=== PATIENT | male | born 1970 | race Hispanic/Latino ===

== ENCOUNTER 2019-12-23 15:03 | Inpatient (IN) | payer SELFPAY ==
[~2019-12-23] VITALS: Ht 167.6 cm; Wt 78.5 kg
--- OUTSIDE RECORDS SUMMARY | 2019-12-23 15:06 | XMS REPORT ---
Author Author [facility] Organization [facility] Address Unknown Phone Unavailable Care Team Providers Care [facility] Orderly Name Role Phone Unavailable Unavailable Payers Payer Name Policy Type Policy Number Effective Date Expiration D ate Problems This patient has no known problems. Allergies, Adverse Reactions, Alerts Allergy Name Allergy Type Status Severity Reaction(s) Onset Date Inacti ve Date Treating Clinician Comments No Known Allergies DA Active U 2019-07-27 00:00:00 No Known Drug Intolerances DA Active U 2007-05-31 00 :00:00 No Known Contrast Allergies DA Active U 2007-05-31 0 0:00:00 No Known Drug Allergies DA Active U 2007-05-31 00:00 :00 No Known Food Allergies DA Active U 2007-05-31 00:00 :00 No Known Other Allergies DA Active U 2007-05-31 00:0 0:00 Medications This patient has no known medications. Encounters Start Date/Time End Date/Time Encounter Type Admission Type [facility] Care Department Encounter ID 2019-10-27 17:11:00 2019-10-27 17:11:00 Emergency E MHSE [id number] 2018-12-28 16:24:00 2018-12-28 16:24:00 Emergency E MHSE MHSE [id number] 2018-12-15 23:16:00 2018-12-15 23:16:00 Emergency E MHNW MHNW [id number] Results Test Description Test Time Test Comments Text Results Atomic Results Result Comments CBC W/O DIFF 2019-07-28 00:12:00 WHITE BLOOD CELL (test code = WBC) 10.2 K/mm3 4.5-12.5 RED BLOOD CELL (test code = RBC) 5.23 mill/mm3 4.0-5.8 HEMOGLOBIN (test code = HGB) 15.1 gram/dL 13.0-17.5 HEMATOCRIT (test code = HCT) 47.3 % 42.0-52.0 MEAN CELL VOLUME (test code = MCV) 90.4 fL 80-98 MEAN CELL HGB (test code = MCH) 28.9 picogram 27.0-33.0 MEAN CELL HGB CONCETRATION (test code = MCHC) 31.9 gram/dL 33 .0-36.0 RED CELL DISTRIBUTION WIDTH (test code = RDW) 12.9 % 11 .6-16.2 PLATELET COUNT (test code = PLT) 314 K/mm3 150-450 MEAN PLATELET VOLUME (test code = MPV) 9.7 fL 6.7-11.0 BASIC METABOLIC [id number] 00:08:00* Test Item Value Reference Range Comments SODIUM (test code = NA) 139 mmol/L 136-145 POTASSIUM (test code = K) 3.4 mmol/L 3.5-5.1 CHLORIDE (test code = CL) 101.0 mmol/L 98-107 CARBON DIOXIDE (test code = CO2) 32.0 mmol/L 21-32 ANION GAP (test code = GAP) 9.4 10-20 GLUCOSE (test code = GLU) 174 mg/dL 74-106 BLOOD UREA NITROGEN (test code = BUN) 19 mg/dL 7-18 GLOMERULAR FILTRATION RATE (test code = GFR) > 60 mL/min >=6 0 Estimated GFR by using Modified MDRD formula.Chronic kidney disease is defined as either kidney damageor GFR <60 mL/min/1.73 m2 for >3 months. CREATININE (test code = CREAT) 1.00 mg/dL 0.7-1.3 BUN/CREATININE RATIO (test code = BUN/CREA) 18.1 10-2 0 CALCIUM (test code = CA) 9.6 mg/dL 8.5-10.1 [id number] 00:08:00* Test Item Value Reference Range Comments TROPONIN-I (test code = TROPI) <0.015 ng/mL 0-0.045 BASIC METABOLIC [id number] 23:57:00* Test Item Value Reference Range Comments SODIUM (test code = NA) 139 mmol/L 136-145 POTASSIUM (test code = K) 3.4 mmol/L 3.5-5.1 CHLORIDE (test code = CL) 101.0 mmol/L 98-107 CARBON DIOXIDE (test code = CO2) mmol/L 21-32 ANION GAP (test code = GAP) 10-20 GLUCOSE (test code = GLU) mg/dL 74-106 BLOOD UREA NITROGEN (test code = BUN) mg/dL 7-18 GLOMERULAR FILTRATION RATE (test code = GFR) mL/min >=6 0 CREATININE (test code = CREAT) mg/dL 0.7-1.3 BUN/CREATININE RATIO (test code = BUN/CREA) 10-2 0 CALCIUM (test code = CA) 9.6 mg/dL 8.5-10.1 [id number] 23:57:00* Test Item Value Reference Range Comments TROPONIN-I (test code = TROPI) ng/mL 0-0.045 - XR CHEST 1 [id number] 23:32:00 FAX: Chelsea José DO [place]: B St: REG Name: SRIRAM GIMENEZ [facility] : [birth year] Age/S: 49/M [address] [facility] Unit #: [id number] Loc: [place] [address] Phys: Chelsea José DO Acct: [id number] Dis Date: Status: REG ER PHONE #: [phone] Exam Date: 07/27/2019 2330 FAX #: [phone] Reason: CHEST PAIN EXAMS: CPT CODE: [id number] XR CHEST 1 V 11934 LOCATION: Q15 HISTORY: 49-year-old male who presents with chest pain. COMMENT: A frontal chest radiograph was obtained at the bedside at 11:25 p.m. The lungs are clear and well-aerated. The cardiac silhouette, thaddeus, and mediastinum are within normal limits. The skeleton is intact, and the surrounding soft tissues are unremarkable. IMPRESSION: Unremarkable portable examination of the chest. at 2332 Reported and signed by: Shaila Breen M.D. CC: Chelsea José DO Technologist: Ana Rosa Samuels Trnscrd Date/Time/By: 07/27/2019 (8463) : By: [email or web address] Orig Print D/T: S: 07/27/2019 (0283) PAGE 1 Signed Report
[2019-12-23] MEDS ORDERED: ASPIRIN 81 MG CHEW TAB PO ONE (15:30)
[2019-12-23 15:45] LABS: INR 0.89; PROTHROMBIN TIME 12.6 seconds (11.9-14.5)
[2019-12-23 15:46] LABS: PARTIAL THROMBOPLASTIN TIME 22.3 seconds (23.8-35.5)
--- NOTE | 2019-12-23 15:54 | NUR ---
RECEIVED CALL FROM LAB, BLOOD CLOTTED. HAMZAH AND SENT TO LAB
[2019-12-23 15:56] LABS: ALANINE AMINOTRANSFERASE 22 IU/L (0-55); ALBUMIN 3.9 g/dL (3.5-5.0); ALKALINE PHOSPHATASE 66 IU/L (40-150); ANION GAP 12.8 mmol/L (8-16); BLOOD UREA NITROGEN 15 mg/dL (7-26); BUN/CREATININE RATIO 14 (6-25); CALCIUM 10.2 mg/dL (8.4-10.2); CARBON DIOXIDE 30 mmol/L (22-29); CHLORIDE 100 mmol/L (98-107); CREATINE KINASE 46 IU/L (30-200); CREATININE, SERUM 1.07 mg/dL (0.72-1.25); EST GLOMERULAR FILTRATION RATE > 60 ML/MIN (60-); GLUCOSE 94 mg/dL (74-118); POTASSIUM 4.8 mmol/L (3.5-5.1); SODIUM 138 mmol/L (136-145)
--- NOTE | 2019-12-23 16:01 | NUR ---
COVID TEST, OBTAINED
[2019-12-23 16:03] LABS: BASOPHILS # (AUTO) 0.1 (0.0-0.1); BASOPHILS % 0.4 % (0.0-1.0); EOSINOPHILS # (AUTO) 0.1 (0.0-0.4); EOSINOPHILS % 0.9 % (0.0-6.0); HEMATOCRIT 47.2 % (38.2-49.6); HEMOGLOBIN 15.2 g/dL (14.0-18.0); LYMPHOCYTES % 25.8 % (18.0-39.1); MEAN CORPUSCULAR HEMOGLOBIN 28.4 pg (28-32); MEAN CORPUSCULAR HGB CONC 32.2 g/dL (31-35); MEAN CORPUSCULAR VOLUME 88.2 fL (81-99); MONOCYTES # (AUTO) 0.9 (0.2-0.8); MONOCYTES % 7.9 % (4.4-11.3); NEUTROPHILS # (AUTO) 7.6 (2.1-6.9); NEUTROPHILS % 64.6 % (38.7-80.0); PLATELET COUNT 247 x10e3/uL (140-360); RED BLOOD COUNT 5.35 x10e6/uL (4.3-5.7); RED CELL DISTRIBUTION WIDTH 13.5 % (11.7-14.4)
[2019-12-23] MEDS ORDERED: ONDANSETRON HCL INJ 2MG/ML 2ML 2 MG/ML VIAL IV PRN (16:15)
[2019-12-23] MEDS ORDERED: MORPHINE SULFATE 2 MG/ML SYR 1ML IV PRN ×2 (16:15→20:45)
[2019-12-23] MEDS ORDERED: NITROGLYCERIN 0.4 MG SUBL SL PRN (16:15)
--- NOTE | 2019-12-23 16:18 | Diagnostic Imaging Report ---
EXAMINATION: CHEST SINGLE (PORTABLE) INDICATION: ^cp ^[id number] ^[id number] COMPARISON: None FINDINGS: AP view Limited by body habitus. TUBES and LINES: None. LUNGS: Lungs are well inflated. There is no evidence of pneumonia or pulmonary edema. PLEURA: No pleural effusion or pneumothorax. HEART AND MEDIASTINUM: The cardiomediastinal silhouette is unremarkable. BONES AND SOFT TISSUES: No acute osseous lesion. Soft tissues are unremarkable. UPPER ABDOMEN: No free air under the diaphragm. IMPRESSION: No acute thoracic abnormality. Signed by: Dr. Wiley Caputo MD on 12/23/2019 4:14 PM
[2019-12-23] MEDS ORDERED: METOPROLOL TAR100 MG PO (16:19)
[2019-12-23] MEDS ORDERED: OMEGA-31000 MG PO (16:19)
[2019-12-23] MEDS ORDERED: [UNRECOGNIZED DRUG - OTHER] PO (16:19)
[2019-12-23] MEDS ORDERED: atorvastin PO (16:19)
[2019-12-23] MEDS ORDERED: [UNRECOGNIZED DRUG - OTHER] PO (16:19)
[2019-12-23] MEDS ORDERED: [UNRECOGNIZED DRUG - OTHER] PO (16:19)
[2019-12-23] MEDS ORDERED: ALOPURINOL PO (16:19)
--- NOTE | 2019-12-23 16:19 | NUR ---
PATIENT HAS MEDICATION HE BROUGHT FROM [place]
[2019-12-23 17:38] VITALS: BP 132/83
[2019-12-23 17:55] VITALS: BP 132/83
[2019-12-23 18:29] VITALS: BP 132/83
[2019-12-23 19:37] VITALS: BP 133/56
[2019-12-23 19:47] VITALS: BP 133/84
[2019-12-23] MEDS ORDERED: ACETAMINOPHEN 325 MG TAB PO PRN (20:45)
[2019-12-23] MEDS ORDERED: HYDROCODONE/APAP 5MG-325MG TAB PO PRN (20:45)
[2019-12-23] MEDS: FAMOTIDINE 20 MG/2 ML VIAL IV SCH (21:11)
[2019-12-23] MEDS ORDERED: AMLODIPINE BESY10 MG PO (21:17)
[2019-12-23] MEDS: CLOPIDOGREL BISULFATE 75 MG TAB PO SCH (23:00)
[2019-12-23] MEDS: ATORVASTATIN 40 MG TAB PO SCH (23:00)
[2019-12-23 23:44] LABS: BASOPHILS % 0.3 % (0.0-1.0); EOSINOPHILS # (AUTO) 0.1 (0.0-0.4); HEMATOCRIT 44.9 % (38.2-49.6); HEMOGLOBIN 14.5 g/dL (14.0-18.0); LYMPHOCYTES # (AUTO) 3.6 (1.0-3.2); LYMPHOCYTES % 31.6 % (18.0-39.1); MEAN CORPUSCULAR HEMOGLOBIN 28.3 pg (28-32); MEAN CORPUSCULAR HGB CONC 32.3 g/dL (31-35); MEAN CORPUSCULAR VOLUME 87.5 fL (81-99); MONOCYTES # (AUTO) 0.7 (0.2-0.8); MONOCYTES % 6.3 % (4.4-11.3); NEUTROPHILS # (AUTO) 6.9 (2.1-6.9); NEUTROPHILS % 60.3 % (38.7-80.0); PLATELET COUNT 237 x10e3/uL (140-360); RED BLOOD COUNT 5.13 x10e6/uL (4.3-5.7); RED CELL DISTRIBUTION WIDTH 13.5 % (11.7-14.4)
[2019-12-24] VITALS (8 sets, daily range): BP systolic 104–143; BP diastolic 67–87
[2019-12-24 00:04] LABS: ANION GAP 10.4 mmol/L (8-16); BLOOD UREA NITROGEN 15 mg/dL (7-26); BUN/CREATININE RATIO 17 (6-25); CALCIUM 9.5 mg/dL (8.4-10.2); CARBON DIOXIDE 28 mmol/L (22-29); CHLORIDE 104 mmol/L (98-107); CREATININE, SERUM 0.89 mg/dL (0.72-1.25); EST GLOMERULAR FILTRATION RATE > 60 ML/MIN (60-); GLUCOSE 189 mg/dL (74-118); POTASSIUM 3.4 mmol/L (3.5-5.1); SODIUM 139 mmol/L (136-145)
--- NOTE | 2019-12-24 00:28 | History and Physical ---
CHIEF COMPLAINT: Chest pain. HISTORY OF PRESENT ILLNESS: A 49-year-old male with known history of hypertension and hyperlipidemia, comes into the ED with complaints of chest pain that began on Wednesday of this week. The patient reports it is left-sided substernal that has been pinpoint ongoing episodically for the last several days. He denies any radiation to the left shoulder and arm. Denies any associated nausea and vomiting. He does have occasional headaches, but currently does not have any headaches. Denies any abdominal pain, cough, congestion, fever, or any recent travel. He did see a PCP apparently in [place] and was told that he needed a cardiac workup, but was not able to afford it. He was prescribed some Plavix in [place], but he did not describe having a heart catheterization as he reports he did not have money to perform that procedure. He was then prescribed cardioprotective medications including Plavix when he left [place]. The patient is seen and evaluated at bedside on the medical floor, he is currently doing well with no other issues at this time. He was chest pain-free during my evaluation and his vital signs were stable during my evaluation. REVIEW OF SYSTEMS: Pertinent positive chest pain. The rest of 14-point review of systems have been reviewed with the patient and are negative. ALLERGIES: NO KNOWN DRUG ALLERGIES. HOME MEDICATIONS: He currently takes allopurinol, atorvastatin, Plavix, metoprolol, and fish oil. There are two other drugs that are specific for [place], but we do not know the translation here in the [place]. PAST MEDICAL HISTORY: Hypertension and hyperlipidemia. PAST SURGICAL HISTORY: None. FAMILY HISTORY: Hypertension and diabetes. SOCIAL HISTORY: He denies smoking, drugs, or any alcohol. He is . PHYSICAL EXAMINATION: VITAL SIGNS: Temperature is 97.9, pulse is 50, respiratory rate is 18, blood pressure 133/56, and pulse ox 99% on room air. GENERAL: In no acute distress, alert and oriented x3, cooperative on examination. HEENT: Head is normocephalic and atraumatic. Eyes; pupils are equal, round and reactive to light bilaterally. Extraocular movements are equal. Throat; no evidence of erythema or exudates in the posterior pharynx. Has poor dentition. NECK: Supple. Good range of motion throughout. PULMONARY: Clear to auscultation bilaterally. No wheezing, rales, or rhonchi. No crackles appreciated. CARDIOVASCULAR: Positive S1, S2. No murmurs, rubs, or gallops appreciated. ABDOMEN: Soft, nondistended, and nontender to palpation. Bowel sounds present. MUSCULOSKELETAL: No evidence of any muscle deficits on examination. NEUROLOGICAL: Alert and oriented x3. Skin: Intact, warm to touch. Good cap refill. PSYCHIATRIC: Normal affect and mood. EXTREMITIES: No edema. Good range of motion throughout. LABORATORY DATA: Labs show white count 11.6, hemoglobin 15, hematocrit 47, platelets of 247,000. Coagulation PT 12, INR 0.89, and PTT 22. Chemistry; sodium 138, potassium 4.8, chloride 100, bicarb 30, anion gap of 12, BUN is 15, creatinine is 1.07, glucose 94, calcium 10.2, magnesium 2, total bilirubin is 0.8, AST 33, ALT 22, alkaline phosphatase 66, CK 46, troponins 0.016 negative, BNP 34, albumin 3.9. Serology, crawley virus PCR is pending. IMAGING STUDIES: Chest x-ray shows no acute thoracic abnormality. IMPRESSION: 1. Chest pain, rule out acute coronary syndrome. 2. Hypertension. 3. Hyperlipidemia. PLAN: At this time, his cardiac enzymes were found to be negative. EKG showed no acute findings, normal sinus rhythm. We will continue with aspirin, also Plavix that he takes at home. Continue with cardioprotective medications, pain control. Trend cardiac enzymes, Cardiology consultation and cardiac telemetry. We are going to resume same home medications, but hold the beta-blockade as his heart rate is in the 50s, which could be contributing to his underlying possible chest pain. We will continue with Pepcid. It seems like from his story that his chest pain is likely atypical and it could be related to acid reflux the way he was describing it during my interview with him. He is on Pepcid for that. We will put him on also Lovenox for DVT prophylaxis, heart healthy diet. Cardiology consult and await final recommendations. I reviewed the plan of care with the patient and the nurse at bedside. MD MACO Rosas/RUDI /[id number]
[2019-12-24 01:18] LABS: CREATINE KINASE MB 0.7 ng/mL (0-5.0)
--- NOTE | 2019-12-24 06:46 | NUR ---
PATIENT IS RESTING COMFORTABLY IN THE BED. NO DISTRESS NOTED.
[2019-12-24] MEDS: FAMOTIDINE 20 MG/2 ML VIAL IV SCH ×2 (08:17→21:00)
[2019-12-24] MEDS: ASPIRIN 81 MG ENTERIC COATED PO SCH (08:17)
[2019-12-24] MEDS: METOPROLOL TARTRATE 50 MG TAB PO SCH ×2 (08:18→21:00)
[2019-12-24 08:34] LABS: BASOPHILS # (AUTO) 0.1 (0.0-0.1); BASOPHILS % 0.8 % (0.0-1.0); EOSINOPHILS # (AUTO) 0.1 (0.0-0.4); EOSINOPHILS % 0.8 % (0.0-6.0); HEMATOCRIT 47.3 % (38.2-49.6); LYMPHOCYTES # (AUTO) 2.6 (1.0-3.2); MEAN CORPUSCULAR HEMOGLOBIN 27.8 pg (28-32); MEAN CORPUSCULAR HGB CONC 31.7 g/dL (31-35); MEAN CORPUSCULAR VOLUME 87.8 fL (81-99); MONOCYTES # (AUTO) 0.6 (0.2-0.8); MONOCYTES % 6.1 % (4.4-11.3); NEUTROPHILS # (AUTO) 6.5 (2.1-6.9); NEUTROPHILS % 65.9 % (38.7-80.0); PLATELET COUNT 240 x10e3/uL (140-360); RED BLOOD COUNT 5.39 x10e6/uL (4.3-5.7); RED CELL DISTRIBUTION WIDTH 13.6 % (11.7-14.4)
[2019-12-24 08:52] LABS: CREATINE KINASE 33 IU/L (30-200)
[2019-12-24 09:15] LABS: ANION GAP 12.6 mmol/L (8-16); BLOOD UREA NITROGEN 16 mg/dL (7-26); BUN/CREATININE RATIO 15 (6-25); CALCIUM 9.6 mg/dL (8.4-10.2); CARBON DIOXIDE 26 mmol/L (22-29); CHLORIDE 102 mmol/L (98-107); CHOL/HDL RATIO 2.3 (3.9-4.7); CHOLESTEROL 101 MD/DL (0-199); CREATININE, SERUM 1.04 mg/dL (0.72-1.25); EST GLOMERULAR FILTRATION RATE > 60 ML/MIN (60-); GLUCOSE 178 mg/dL (74-118); HDL CHOLESTEROL 43 MG/DL (40-60); LDL CHOLESTEROL 45 MG/DL (60-130); POTASSIUM 3.6 mmol/L (3.5-5.1); SODIUM 137 mmol/L (136-145); TRIGLYCERIDES 65 MG/DL (0-149)
--- NOTE | 2019-12-24 16:21 | Progress Note ---
DATE: 12/24/2019 SUBJECTIVE: The patient reports still having some occasional chest pain. He was doing well during my interview when I examined him today. Denies any other issues at this time. PHYSICAL EXAMINATION: VITAL SIGNS: Temperature is 98.4, pulse 54, respiratory rate is 20, blood pressure 130/83, pulse ox 96% on room air. GENERAL: In no acute distress, alert and oriented x3, cooperative on examination. HEENT: Head is normocephalic and atraumatic. Eyes; pupils are equal, round and reactive to light bilaterally. Extraocular movements are equal. Throat; no evidence of erythema or exudates in the posterior pharynx. Has poor dentition. NECK: Supple. Good range of motion throughout. PULMONARY: Clear to auscultation bilaterally. No wheezing, rales, or rhonchi. No crackles appreciated. CARDIOVASCULAR: Positive S1, S2. No murmurs, rubs, or gallops appreciated. ABDOMEN: Soft, nondistended, and nontender to palpation. Bowel sounds present. MUSCULOSKELETAL: Strength is 5/5 throughout. NEUROLOGIC: Alert and oriented x3. SKIN: Intact, warm to touch. Good cap refill. PSYCHIATRIC: Normal affect and mood. EXTREMITIES: No edema. Good range of motion throughout. MICROBIOLOGY: Throat cultures are pending. IMAGING STUDIES: Lab findings show white count 9.9, hemoglobin 15, hematocrit 47, platelets 240. Chemistry reviewed, stable. Troponins were negative. IMPRESSION: 1. Chest pain, rule out acute coronary syndrome. 2. Hypertension. 3. Hyperlipidemia. PLAN: At this time, cardiac enzymes were found to be negative. I spoke with Cardiology. They are going to perform a cardiac stress test likely tomorrow. Continue with aspirin and Plavix that he already takes at home. Hold all beta-blockade. His heart rate is low. Continue with Lovenox for DVT prophylaxis. Continue with Norvasc for his blood pressure. He is on a heart-healthy diet. COUNSELING DEPARTMENT CHAIR: Cardiology. MD MACO Rosas/RUDI /[id number]
[2019-12-24] MEDS: ENOXAPARIN 30 MG/0.3 ML SYR SC SCH (17:26)
--- NOTE | 2019-12-24 19:05 | NUR ---
Completed bedside rounds with morning nurse. Pt alert and oriented to name, lying in bed HOB 45 degrees. Pt denies pain at this time. Kun light within reach.
--- NOTE | 2019-12-24 19:22 | Consultation ---
DATE OF CONSULTATION: Cardiology Consultation HISTORY OF PRESENT ILLNESS: This is a 49-year-old male with a history of hypertension and possible coronary artery disease, who presented to the emergency department with progressively worsening chest discomfort and elevated blood pressures. He reports that the pain is essentially left-sided without radiation, mild to moderate intensity, associated with some shortness of breath and occasional headaches. Denies any palpitations, syncope, or orthopnea. Evidently, in August, the patient had visited [place], presented to an Internal Medicine doctor who said his echocardiogram was abnormal and reportedly went to a combination welder apprentice and had a stress test, which revealed an abnormality. The patient not proceed with catheterization as recommended because he cannot afford this. He has stuttering chest pain off and on since that time. Currently, he is feeling better. Denies any ongoing symptoms. REVIEW OF SYSTEMS: A 12-point review of system was conducted and is negative except as above in the HPI. PAST MEDICAL HISTORY: As stated above. PAST SURGICAL HISTORY: None recent. PAST FAMILY HISTORY: Noncontributory to current illness. ALLERGIES: NO KNOWN DRUG ALLERGIES. SOCIAL HISTORY: No illicit drug, alcohol, or tobacco use. MEDICATIONS: See medication reconciliation form. PHYSICAL EXAMINATION: VITAL SIGNS: Temperature is 98.4, heart rate is 54, respirations are 20, blood pressure is 130/83, and oxygen saturation 96% on room air. GENERAL: Well appearing, in no apparent distress. Alert and oriented x3. HEAD: Normocephalic and atraumatic. Eyes, the extraocular muscles are intact. Conjunctiva clear. NECK: No JVD. No bruits. CARDIOVASCULAR: Regular rate and rhythm. LUNGS: Clear to auscultation. ABDOMEN: Soft, nontender, nondistended. EXTREMITIES: No clubbing, cyanosis, or edema. VASCULAR: 2+ pulses. SKIN: Warm and dry intact. LABORATORY DATA: Reviewed. Cardiac enzymes negative x3. A 12-lead electrocardiogram showed sinus bradycardia. IMPRESSION: 1. Precordial pain. 2. Abnormal result of a cardiac function study. 3. Hypertension. 4. Bradycardia. 5. Hyperlipidemia. 6. Obesity. RECOMMENDATIONS: The patient has ruled out for acute myocardial infarction. With the story stated above, we will need to proceed with Lexiscan stress test with nuclear perfusion imaging. We will also obtain a 2D echocardiogram. Reduce beta-blockers as he is bradycardic. Continue all the current cardiovascular medications. DO BRENDA Miller/RUDI /[id number]
[2019-12-24] MEDS: AMLODIPINE BESYLATE 10 MG TAB PO SCH (21:00)
[2019-12-24] MEDS: ATORVASTATIN 40 MG TAB PO SCH (21:00)
[2019-12-24] MEDS: CLOPIDOGREL BISULFATE 75 MG TAB PO SCH (21:00)
[2019-12-25] VITALS (8 sets, daily range): BP systolic 109–150; BP diastolic 69–86
[2019-12-25 05:31] LABS: BASOPHILS # (AUTO) 0.1 (0.0-0.1); BASOPHILS % 0.6 % (0.0-1.0); EOSINOPHILS # (AUTO) 0.2 (0.0-0.4); HEMATOCRIT 47.8 % (38.2-49.6); HEMOGLOBIN 15.5 g/dL (14.0-18.0); LYMPHOCYTES # (AUTO) 3.8 (1.0-3.2); MEAN CORPUSCULAR HEMOGLOBIN 28.7 pg (28-32); MEAN CORPUSCULAR HGB CONC 32.4 g/dL (31-35); MEAN CORPUSCULAR VOLUME 88.5 fL (81-99); MONOCYTES # (AUTO) 0.8 (0.2-0.8); MONOCYTES % 7.7 % (4.4-11.3); NEUTROPHILS # (AUTO) 5.9 (2.1-6.9); NEUTROPHILS % 54.3 % (38.7-80.0); PLATELET COUNT 258 x10e3/uL (140-360); RED CELL DISTRIBUTION WIDTH 13.4 % (11.7-14.4)
[2019-12-25 05:53] LABS: ANION GAP 11.3 mmol/L (8-16); BLOOD UREA NITROGEN 16 mg/dL (7-26); BUN/CREATININE RATIO 19 (6-25); CALCIUM 9.7 mg/dL (8.4-10.2); CARBON DIOXIDE 28 mmol/L (22-29); CHLORIDE 104 mmol/L (98-107); CREATININE, SERUM 0.84 mg/dL (0.72-1.25); EST GLOMERULAR FILTRATION RATE > 60 ML/MIN (60-); GLUCOSE 81 mg/dL (74-118); POTASSIUM 3.3 mmol/L (3.5-5.1); SODIUM 140 mmol/L (136-145)
--- NOTE | 2019-12-25 07:05 | NUR ---
Report given to morning nurse. Patient is in stable condition, no s/s of distress noted. Tele in place. 2g IV right AC intact. Bed alarm on. Bed low and locked. Call light within reach. Pt DIETEROElpidio scheduled today.
--- NOTE | 2019-12-25 07:35 | NUR ---
PATIENT IN BED RESTING WITH NO S/S OF DISCOMFORT. BED IN LOWER POSITION, CALL LIGHT AT REACH.
--- NOTE | 2019-12-25 10:53 | NUR ---
Pt unavailable at this time. Hospital staff at bedside. Will follow up as able. SARAH JOSEPH Procurement Technician Spiritual Care Department O: [phone]
--- NOTE | 2019-12-25 11:16 | NUR ---
PATIENT OFF UNIT FOR A PROCEDURE.
[2019-12-25] MEDS ORDERED: REGADENOSON 0.4 MG/5 ML SYR IV ONE (11:49)
--- NOTE | 2019-12-25 14:17 | NUR ---
SPOKE WITH MD REGARDING ABNORMAL LAB RESULT, NEW ORDER RECEIVED. PATIENT BACK TO UNIT AT THIA TIME. HAD A STRESS TEST DONE.
[2019-12-25] MEDS: FAMOTIDINE 20 MG/2 ML VIAL IV SCH (14:35)
[2019-12-25] MEDS: ASPIRIN 81 MG ENTERIC COATED PO SCH (14:35)
[2019-12-25] MEDS: METOPROLOL TARTRATE 50 MG TAB PO SCH ×2 (14:35→21:00)
[2019-12-25] MEDS ORDERED: POTASSIUM CHLORIDE 20 MEQ TAB CR PO ONE (14:45)
--- NOTE | 2019-12-25 16:15 | NUR ---
CALL PLACED TO ELEVATOR EXAMINER AND ADJUSTER AFTER STRESS TEST. MESSAGE LEFT TO ANSWERING STAFF. AWAITING CALL BACK.
--- NOTE | 2019-12-25 16:47 | NUR ---
Nutrition Screen Note RD Recommendation for Physician: -Recommend advancing diet to cardiac diet when medically appropriate Plan of Care: RD following, monitoring for tolerance and adequacy Nutrition reason for involvement: Nutrition Risk Trigger MST 2 Primary Diagnose(s): chest pain PMH: HTN, HLD Ht: 66 in Wt:174 lb BMI: 28.1 kg/m2 IBW:[address] Assessment: (12/25/19) Chart reviewed. Labs and meds reviewed. Pt is a 49 year old male admitted with chest pain. Pt is currently NPO and was off the unit for a procedure at time of visit. It is documented that pt consumed 75% of meals yesterday. There are no prior weights in chart. Will continue to monitor unless consulted sooner. Current Diet: NPO Malnutrition Evaluation (12/25/19) Unable to fully assess. Will re-evaluate at follow-up as appropriate. Diet Education Needs Assessment: RD is available for diet education as needed Nutrition Care Level: low Signed: Chelsea Andersen, SHIRLEY, LD
[2019-12-25] MEDS: ENOXAPARIN 30 MG/0.3 ML SYR SC SCH (17:17)
--- NOTE | 2019-12-25 19:20 | NUR ---
Patient visited in room during nursing rounds. Patient alert and oriented x3. Patient ambulatory in room prn. Pt awaiting on further orders or recommendations from heart doctors. No c/o pain at this time. Call cooley within reach. Will monitor pt closely.
[2019-12-25] MEDS ORDERED: ONDANSETRON HCL 4 MG ORAL DISINTEGRATING TAB PO PRN (20:00)
--- NOTE | 2019-12-25 20:18 | NUR ---
Nurse (Francis) spoke with Dr. Marlene Mcconnell (via phone) and was informed to obtain consent for patient scheduled for Cardiac catheterization tomorrow.
--- NOTE | 2019-12-25 20:21 | Progress Note ---
DATE: 12/25/2019 Cardiology Progress Note. SUBJECTIVE: The patient continues to complain of chest pain. He denies any shortness of breath. He was seen for nuclear stress test. OBJECTIVE: VITAL SIGNS: Temp 98 degrees, pulse 86, respiratory rate 18, blood pressure 109/73, and oxygen saturation 98% on room air. GENERAL: Awake, alert, in no acute distress. LUNGS: Clear to auscultation bilaterally. No wheezes or crackles. CARDIOVASCULAR: Normal rate, regular rhythm. No murmur, normal S1, S2. ABDOMEN: Soft, nontender. EXTREMITIES: No edema. CARDIAC MEDICATIONS: 1. Metoprolol tartrate 100 mg p.o. q.12 hours. 2. Aspirin 81 mg p.o. daily. 3. Plavix 75 mg p.o. daily. 4. Atorvastatin 40 mg p.o. at bedtime. 5. Amlodipine 5 mg p.o. daily. LABORATORY DATA: WBC 10.86, hemoglobin 15.5, hematocrit 47.8, platelets 258. Sodium 140, potassium 3.3, chloride 104, CO2 of 28, BUN 16, and creatinine 0.84. Telemetry was personally reviewed and interpreted, really normal sinus rhythm. IMPRESSION: 1. Chest pain. 2. Abnormal cardiac stress test. 3. Hypertension. 4. Hyperlipidemia. 5. Hypertension. RECOMMENDATIONS: The patient ruled out for myocardial infarction. Continue current cardiac medications. The patient's nuclear stress test revealed a small mild perfusion defect in the inferior wall. However, the patient had significant horizontal ST-segment depression in the inferolateral leads on stress and given patient's history and stress test findings, recommend proceeding with cardiac catheterization. Thank you for this consult. We will continue to follow. Marlene Mcconnell MD ABS/MODL /[id number]
--- NOTE | 2019-12-25 21:21 | Myoview Stress Test ---
DATE OF STUDY: 12/24/2019 16:09:00 Stress Test - Treadmill ONLY PROCEDURE TITLE: Rest stress single isotope SPECT imaging with pharmacologic stress and gated SPECT imaging. INDICATION: Chest pain. PROCEDURE IN DETAIL: Pharmacologic stress testing was performed with regadenoson per protocol. The heart rate was 72 beats per minute at rest, increased to 113 beats per minute during the regadenoson infusion. The resting blood pressure was 135/89 mmHg and increased to 152/72 mmHg, which is a normal response. The resting electrocardiogram demonstrated normal sinus rhythm with ST and T-wave abnormalities. A 2.[address]-segment depression was observed in lead II, III, AVF, V5 and V6. Myocardial perfusion imaging was performed at rest following the injection of 11 mCi of tetrofosmin. At peak pharmacologic effect, the patient was injected with 29.8 millicuries of tetrofosmin. Gated post-stress tomographic imaging was performed. FINDINGS: The overall quality of study is fair. Left ventricular cavity is noted to be normal size on the rest stress studies. SPECT images demonstrate a small mild perfusion defect at stress that is not present at rest. Gated SPECT imaging reveals normal myocardial thickening and wall motion. The left ventricular ejection fraction was calculated to be 60%. IMPRESSION: Myocardial perfusion imaging is abnormal. There is a small mild perfusion defect in the inferior wall, cannot rule out artifact. Overall, left ventricular systolic function was normal without regional wall motion abnormalities. Marlene Mcconnell MD ABS/MODL /[id number]
[2019-12-25] MEDS: ATORVASTATIN 40 MG TAB PO SCH (21:30)
[2019-12-25] MEDS: AMLODIPINE BESYLATE 10 MG TAB PO SCH (21:30)
[2019-12-25] MEDS: FAMOTIDINE 20 MG TAB PO SCH (21:30)
[2019-12-25] MEDS: CLOPIDOGREL BISULFATE 75 MG TAB PO SCH (21:30)
--- NOTE | 2019-12-25 22:50 | NUR ---
Pt aware and signed consent for cardiac catheterization scheduled tomorrow.
[2019-12-26 00:56] VITALS: BP 108/67
[2019-12-26 05:29] VITALS: BP 131/87
--- NOTE | 2019-12-26 07:17 | NUR ---
PATIENT IN BED RESTING WITH NO DISTRESS. REMAINS NPO FOR A PROCEDURE. BED IN LOWER POSITION, CALL LIGHT AT REACH.
[2019-12-26 08:00] VITALS: BP 132/69
[2019-12-26] MEDS: ASPIRIN 81 MG ENTERIC COATED PO SCH (09:00)
[2019-12-26] MEDS: FAMOTIDINE 20 MG TAB PO SCH (09:00)
--- NOTE | 2019-12-26 09:18 | Progress Note ---
DATE: 12/25/2019 SUBJECTIVE: The patient was in the process of getting a cardiac stress test during the time I came to evaluate him. Per nursing staff, the patient was doing well with no complaints. OBJECTIVE: VITAL SIGNS: He was afebrile, normotensive, respiratory rate is good. GENERAL: Once again, he was in cardiac stress testing during the time of my evaluation. LABORATORY DATA: Reviewed and stable. IMPRESSION: Chest pain rule out acute coronary syndrome. PLAN: At this time, await cardiac stress testing results to determine the next plan of care. If his cardiac stress testing is positive, he will likely need a left heart catheterization. Continue with cardioprotective medications. Discussed plan of care with Cardiology. I also spoke with nursing in terms of plan of care and the patient is currently stable with no issues. We will continue to monitor. MD MACO Rosas/MODRamon /[id number]
[2019-12-26] MEDS ORDERED: LIDOCAINE HCL 2% LOCAL 20 ML VIAL ONE (09:25)
[2019-12-26] MEDS ORDERED: MIDAZOLAM HCL 2 MG/2 ML VIAL ONE (09:25)
[2019-12-26] MEDS ORDERED: HEPARIN SOD (PORCINE) 1000 UNIT/ML 30ML ONE (09:25)
[2019-12-26] MEDS ORDERED: FENTANYL CITRATE/PF 100MCG/2 ML INJ ONE (09:25)
[2019-12-26] MEDS ORDERED: HEPARIN SOD/SOD CHLORIDE 2,000 ML ONE (09:26)
[2019-12-26] MEDS ORDERED: SODIUM CHLORIDE 0.9% 1000ML 1,000 ML ONE (09:26)
[2019-12-26] MEDS ORDERED: NITROGLYCERIN/D5W 200 MCG/ML 0 ML ONE (09:26)
[2019-12-26] MEDS ORDERED: IOPAMIDOL 370 MG/ML 200 ML INFUS..BTL INJ ONE (09:26)
--- NOTE | 2019-12-26 09:38 | NUR ---
GAVE PACKET OF INFORMATION WITH COMMUNITY [employer] FOR ASSISTANCE WITH LOW TO NO INCOME TO PATIENT. RESOURCES THAT PATIENT MAY BE ABLE TO FOLLOW UP UPON DISCHARGE. PT EDUCATED ON EACH RESOURCE AND UNDERSTANDING HOW TO FOLLOW UP TO SEE IF QUALIFIED FOR EACH RESOURCE.
--- NOTE | 2019-12-26 09:52 | NUR ---
PATIENT OF UNIT TO FORK TRUCK DRIVER.
--- NOTE | 2019-12-26 10:37 | NUR ---
PATIENT BACK TO UNIT FROM QUESTIONED DOCUMENTS EXAMINER. HAD A LEFT HEART CATH. DRESSING DRY AND INTACT TO RIGHT GROIN, NO HEMATOMA NOTED. ON BED REST FOR 2 HOURS, URINAL PROVIDED. V/S 98.4-18-74-122/75 AND 99% ON RA. BED IN LOWER POSITION, CALL LIGHT AT REACH.
[2019-12-26] MEDS: METOPROLOL TARTRATE 50 MG TAB PO SCH (10:59)
[2019-12-26 11:55] VITALS: BP 122/75
--- NOTE | 2019-12-26 15:10 | Progress Note ---
DATE: 12/26/2019 Cardiology Progress Note SUBJECTIVE: The patient denies chest pain or shortness of breath. Cardiac catheterization was performed today without evidence of coronary artery disease. OBJECTIVE: VITAL SIGNS: Temperature 98.4 degrees, pulse 74, respiratory rate 18, blood pressure 122/75 oxygen saturation 99%. GENERAL: Awake, alert, in no acute distress. LUNGS: Clear to auscultation bilaterally. No wheezes or crackles. CARDIOVASCULAR: Normal rate, regular rhythm. No murmur. Normal S1, S2. ABDOMEN: Soft, nontender. EXTREMITIES: No edema. CARDIAC MEDICATIONS: Metoprolol tartrate 100 mg p.o. q.12 hours, Plavix 75 mg p.o. at bedtime, atorvastatin 40 mg p.o. at bedtime, amlodipine 5 mg p.o. at bedtime, aspirin 81 mg p.o. daily. LABORATORY DATA: None today. TELEMETRY: Personally reviewed and interpreted revealing normal sinus rhythm. IMPRESSION: 1. Chest pain. 2. Abnormal cardiac stress test. 3. Hypertension. 4. Hyperlipidemia. RECOMMENDATIONS: The patient ruled out for myocardial infarction. Cardiac catheterization was performed without evidence of coronary artery disease. Recommend risk factor modification and blood pressure control. Discussed heart healthy low-sodium diet. Once the patient's bed rest is complete and he is able to ambulate in the hallway without difficulty he may be discharged from a cardiac standpoint. Thank you for this consult. We will continue to follow. Marlene Mcconnell MD ABS/MODL /[id number]
--- NOTE | 2019-12-26 15:59 | Operative Report ---
DATE OF PROCEDURE: SURGEON: Jalen Silva DO PROCEDURES PERFORMED: 1. Conscious sedation, 26 minutes. 2. Selective coronary angiography x2. 3. Left heart catheterization. PREPROCEDURE DIAGNOSIS: Abnormal stress test with chest pain. POSTPROCEDURE DIAGNOSIS: Abnormal stress test with chest pain. ESTIMATED BLOOD LOSS: Less than 20 mL. SPECIMENS REMOVED: None. PROCEDURE IN DETAIL: After informed consent was obtained, the patient was brought to the cardiac catheterization laboratory in a fasting and nonsedated state. Bilateral groins were prepped and draped in the usual sterile fashion. A 2% lidocaine was infiltrated over the right anterior groin for local anesthesia. Using micropuncture needle, the right common femoral artery was accessed via modified Seldinger technique and a 5-Romansh sheath was placed. Next, diagnostic coronary angiography and left heart catheterization was performed. The patient tolerated the procedure well with no immediate complications, and transported back to his room in stable condition. Hemostasis was achieved via Mynx device. PROCEDURAL FINDINGS: 1. Left main coronary artery is patent without significant disease. 2. Left anterior descending artery is patent with luminal irregularities. 3. Left circumflex coronary provides one obtuse marginal vessel with no significant disease. 4. The right coronary artery is a large dominant vessel and provides posterior descending coronary and a large posterior lateral branch with luminal irregularities. 5. Left ventricular end-diastolic pressure was 9 mmHg with no aortic valve gradient present upon pullback. IMPRESSION: Chest pain and hypertension. RECOMMENDATIONS: Continue medical therapy. Jalen Silva DO BM/MODL /[id number]
[2019-12-26 16:00] VITALS: BP 112/75
[2019-12-26] MEDS ORDERED: LIPITOR20 MG PO (17:14)
[2019-12-26] MEDS ORDERED: ASPIR 8181 MG (17:15)
[2019-12-26] MEDS ORDERED: METOPROLOL SUCC25 MG PO (17:16)
[2019-12-26] MEDS ORDERED: NORVASC10 MG PO (17:17)
[2019-12-26] MEDS ORDERED: PROTONIX40 MG PO (17:18)
--- NOTE | 2019-12-26 18:10 | NUR ---
PATIENT DISCHARGED HOME. DISCHARGE INSTRUCTIONS, PRESCRIPTIONS, AND FOLLOW UP GIVEN TP PATIENT, HE VERBALIZED UNDERSTANDING. IV TO RIGHT AC REMOVED WITH TIP INTACT. ALL PERSONAL ITEMS TAKEN WITH PATIENT. LEFT UNIT PER WHEEL CHAIR TO FRONT LOBBY IN STABLE CONDITION.
--- NOTE | 2019-12-26 22:27 | Discharge Summary ---
FINAL DISCHARGE DIAGNOSES: 1. Atypical chest pain. 2. Hypertension. 3. Hyperlipidemia. CONSULTANTS: Cardiology. PHYSICAL EXAMINATION: VITAL SIGNS: Temperature is 98.4, pulse 74, respiratory rate is 18, blood pressure 122/75, and pulse ox 99% on room air. LABORATORY DATA: Show white count was 10, hemoglobin 15, hematocrit is 47, platelets of 258. Coagulation; PT 12, INR 0.89, PTT 22. Chemistry; sodium 140, potassium is 3.3 replaced, chloride 104, bicarb 28, anion gap of 11, BUN is 16, creatinine is 0.84, glucose 81. Hemoglobin A1c was 5.8, calcium is 9.7, magnesium was 2. LFTs within normal range. BNP 34. Troponins were all negative. Albumin 3.9. LDL was 45. SEROLOGY: Coronavirus PCR was found to be undetectable. Chest x-ray shows no acute thoracic abnormality. The patient had a cardiac stress test that shows that it was abnormal. There is a small mild perfusion defect in the inferior wall. HOSPITAL COURSE: A 49-year-old male, came into the ED with complaints of chest pain. Cardiology was consulted. Cardiac enzymes were negative. Had an abnormal cardiac stress testing, for which the patient had to undergo a cardiac left heart cath on 12/26/2019. Cardiac cath was found to be negative. No PCI was needed. I spoke with Cardiology, the patient can be cleared for discharge to home on cardioprotective medications. We will discontinue Plavix. Continue with aspirin, statin, and low-dose beta blockade including Norvasc. They did not recommend any LARRY or ARB at this time per Cardiology. The patient was asymptomatic and symptom-free prior to being discharged to home. The patient has been cleared for discharge by Cardiology. On the day of discharge, vital signs were stable, labs reviewed and stable. The patient is seen and evaluated and examined thoroughly on the day of discharge. No other complaints. The patient verbalized understanding and agrees to plan of care to follow up as an outpatient with the PCP in 1 week and the network operations center technician in 2 weeks' time. MEDICATIONS: See med reconciliation form. DISPOSITION: Home. CONDITION: Stable. DIET: Heart healthy. In the event of any worsening symptoms, the patient was advised to come back to the ED for further evaluation. Discharge summary took greater than 35 minutes. MD MACO Rosas/RUDI /[id number]
== END 2019-12-26 18:07 | disposition home or self-care (01) | DRG 287 ==
LOC: ER 15:03 → OBSVTOIN 16:11 → ERHOLD 16:11 → MED/SURG2 17:25
PROVIDERS: ADMIT Internal Medicine; ATTEND Internal Medicine
PROC: 4A023N7 Measurement of Cardiac Sampling and Pressure, Left Heart, Percutaneous Approach (ICD-10-PCS; principal; 2019-12-26)
PROC: B2111ZZ Fluoroscopy of Multiple Coronary Arteries using Low Osmolar Contrast (ICD-10-PCS; 2019-12-26)
PROC: B2151ZZ Fluoroscopy of Left Heart using Low Osmolar Contrast (ICD-10-PCS; 2019-12-26)
DX: R07.89 Other chest pain (principal); I10 Essential (primary) hypertension; E11.9 Type 2 diabetes mellitus without complications; M10.9 Gout, unspecified; Z82.49 Family history of ischemic heart disease and other diseases of the circulatory system; E78.5 Hyperlipidemia, unspecified; Z79.82 Long term (current) use of aspirin; E66.9 Obesity, unspecified; Z68.27 Body mass index [BMI] 27.0-27.9, adult; Z11.59 Encounter for screening for other viral diseases
CPT/HCPCS: 36415; 71045; 78452; 80048; 80053; 80061; 82550; 82553; 82948; 83036; 83735; 83880; 84484; 85025; 85610; 85730; 87635; 93005; 93017; 93458; 99152; 99284; A9502; C1760; J1644; J1650; J2001; J2250; J3010; J7030; Q9967

== ENCOUNTER 2020-03-14 22:22 | Emergency (ER) | payer SELFPAY ==
[~2020-03-14] VITALS: Ht 167.6 cm; Wt 78.5 kg
[~2020-03-14 22:22] MED LIST: ALOPURINOL PO; AMLODIPINE BESY10 MG PO; ASPIR 8181 MG; LIPITOR20 MG PO; METOPROLOL SUCC25 MG PO; METOPROLOL TAR100 MG PO; NORVASC10 MG PO; OMEGA-31000 MG PO; PROTONIX40 MG PO; [UNRECOGNIZED DRUG - OTHER] PO; [UNRECOGNIZED DRUG - OTHER] PO; [UNRECOGNIZED DRUG - OTHER] PO; atorvastin PO
[2020-03-14 23:22] VITALS: BP 134/86
--- OUTSIDE RECORDS SUMMARY | 2020-03-15 21:02 | XMS REPORT | Continuity of Care Document ---
Author Author [facility] t Organization [facility] Address [address] [place] [address] Phone Unavailable Care Team Providers Care Bead Maker Name Role Phone MD Jamil SORTO PCP DAHU, S JIRIES Attphys Unavailable DAHU, S JIRIES Admphys Unavailable Payers Payer Name Policy Type Policy Number Effective Date Expiration Date S ource Problems Condition Name Condition Details Condition Category Status Onset Date Resolution Date Last Treatment Date Treating Clinician Comments Source Chest pain Problem Active [facility] Allergies, Adverse Reactions, Alerts Allergy Name Allergy Type Status Severity Reaction(s) Onset Date Inacti ve Date Treating Clinician Comments Source No Known Allergies DA Active U 2019-07-27 00:00:00 [facility] No Known Drug Intolerances DA Active U 2007-05-31 00:00:0 0 [facility] No Known Contrast Allergies DA Active U 2007-05-31 00:00: 00 [facility] No Known Drug Allergies DA Active U 2007-05-31 00:00:00 [facility] No Known Food Allergies DA Active U 2007-05-31 00:00:00 [facility] No Known Other Allergies DA Active U 2007-05-31 00:00:00 [facility] Social History Social Habit Start Date Stop Date Quantity Comments Source Sex Assigned At 1970 00:00:00 1970 00:00:00 Male [facility] Medications Ordered Medication Name Filled Medication Name Start Date Stop Da te Current Medication? Ordering Clinician Indication Dosage Frequency Signature (SIG) Comments Components Source Alopurinol Alopurinol Yes 300 Reinforcing Rod Layer [facility] Amlodipine Besylate (Norvasc) 10 Mg TAB Amlodipine Besylate (Norvasc) 10 Mg TAB Yes 10 Daily [facility] Aspirin (Aspir 81) 81 Mg TABLET. Aspirin (Aspir 81) 81 Mg TABLET. Yes Daily [facility] Atorvastatin Calcium (Lipitor) 20 Mg TABLET Atorvastat in Calcium (Lipitor) 20 Mg TABLET Yes 40 Bedtime [facility] Atorvastin Atorvastin Yes 40 Bedtime [facility] Edarbi Cld Edarbi Cld Yes 40 Daily [facility] Bennett-3 Fatty Acids (Bennett-3) 1,000 Mg CAPSULE Bennett-3 Fatty Acids (Bennett-3) 1,000 Mg CAPSULE Yes 1 Daily [facility] Pantoprazole Sodium (Protonix) 40 Mg SUSPDR.PKT Pantop razole Sodium (Protonix) 40 Mg SUSPDR.PKT Yes 40 Daily [facility] Amlodipine Besylate Amlodipine Besylate 2019-12-26 00:00:[address] [facility] Coplavix Coplavix 2019-12-26 00:00:00 No 75 Bedtime [facility] Isorbid Ap Isorbid Ap 2019-12-26 00:00:00 No 20 Kusum ly [facility] Metoprolol Succinate Metoprolol Succinate 2019-12-26 00:00:[address] [facility] Metoprolol Tartrate Metoprolol Tartrate 2019-12-25 00:00:00 No [address] [facility] Vital Signs Vital Name Observation Time Observation Value Comments Source Body Temperature 2020-03-14 23:22:00 98.0 [degF] [facility] Weight 2020-03-14 23:02:00 173 [lb_av] [facility] BMI (Body Mass Index) 2020-03-14 23:02:00 27.9 kg/m2 [facility] Body Temperature 2019-12-26 16:00:00 97.8 [degF] [facility] Weight 2019-12-26 06:29:00 173.03 [lb_av] [facility] BMI (Body Mass Index) 2019-12-26 06:29:00 27.9 kg/m2 [facility] Procedures Procedure Date / Time Performed Performing Clinician Sourc e MEASURE OF CARDIAC SAMPL & PRESSURE, L HEART, PERC APPROACH 2019-12-26 00:00:00 [facility] FLUOROSCOPY OF MULT COR ART USING L OSM CONTRAST 2019-12-26 00:0 0:00 [facility] FLUOROSCOPY OF LEFT HEART USING LOW OSMOLAR CONTRAST 2019-12-26 00:00:00 [facility] Plan of Care Planned Activity Planned Date Details Comments Source Instructions Hypertension [facility] Encounters Start Date/Time End Date/Time Encounter Type Admission Type [facility] Care Department Encounter ID Source 2020-03-14 22:26:00 2020-03-14 23:30:00 Departed Emergency Room [id number] [facility]-23 16:11:00 2019-12-26 18:07:00 Discharged Inpatient 1 CARINA BLACK [facility] [id number] [facility] 2019-10-27 17:11:00 2019-10-27 17:11:00 Emergency E [id number] 2018-12-28 16:24:00 2018-12-28 16:24:00 Emergency E [id number] 2018-12-15 23:16:00 2018-12-15 23:16:00 Emergency E [facility]NW [facility]NW [address] Results Test Description Test Time Test Comments Results Result Comments Source Capillary blood glucose measurement by glucometer (mas s/volume) 2019-12-26 06:20:00 Test Item Bedside Glucose (test code = 59404-6) 75 70-120 Meter ID: [id number] [facility] by [facility]com[facility] (mass/volume)2019-12-26 06:20:00* Test Item Value Reference Range Interpretation Comments Bedside Glucose (test code = 81327-0) 75 70-120 Meter ID: [id number] [facility] [id number] 17:48:00 [facility] [address] [address] Patient Name : SRIRAM CONCEPCION MR #: [id number] : 1970 Age/Sex: 49/M Adm Physician : CARINA BLACK MD Admit Date : 12/23/19 Location : MED/SURG Room/Bed : [facility] REPORT: Myovi ew Stress Test DATE OF STUDY: 12/24/2019 16:09:00 Stress Test - Treadm ill ONLY PROCEDURE TITLE: Rest stress single isotope SPECT imaging with p harmacologic stress and gated SPECT imaging. INDICATION: Chest pain. PROCEDURE IN DETAIL: Pharmacologic stress testing was performed with regad enoson per protocol. The heart rate was 72 beats per minute at rest, increase d to 113 beats per minute during the regadenoson infusion. The resting blood pressure was 135/89 mmHg and increased to 152/72 mmHg, which is a normal respo nse. The resting electrocardiogram demonstrated normal sinus rhythm with ST a nd T-wave abnormalities. A 2.[address]-segment depression was observ ed in lead II, III, AVF, V5 and V6. Myocardial perfusion imaging was perf ormed at rest following the injection of 11 mCi of tetrofosmin. At peak pharm acologic effect, the patient was injected with 29.8 millicuries of tetrofosmin . Gated post-stress tomographic imaging was performed. FINDINGS: The pending sale to [facility] quality of study is fair. Left ventricular cavity is noted to be normal size on the rest stress studies. SPECT images demonstrate a small mild perfusi on defect at stress that is not present at rest. Gated SPECT imaging reveals normal myocardial thickening and wall motion. The left ventricular ejection f raction was calculated to be 60%. IMPRESSION: Myocardial perfusion jez ging is abnormal. There is a small mild perfusion defect in the inferior wall , cannot rule out artifact. Overall, left ventricular systolic function was n ormal without regional wall motion abnormalities. Courtney Mcconnell MD ABS/RUDI :5 3 /[id number] Signature Date Dictated By: COURTNEY MCCONNELL MD Transcribed By: SUZETTEL on 12/25/19 < Electronically signed by COURTNEY MCCONNELL MD><<Signature on File>>01/15/20 1040 COPY TO: Blood leukocytes automated count (number/volume)2019-12-25 04:55:00* Test Item Value Reference Range Interpretation Comments White Blood Count (test code = 6690-2) 10.86 4.8-10.8 [facility] automated count (number/volume)2019-12-25 04:55:00* Test Item Value Reference Range Interpretation Comments Red Blood Count (test code = 789-8) 5.40 4.3-5.7 [facility] hemoglobin measurement (moles/volume)2019-12-25 04:55:00* Test Item Value Reference Range Interpretation Comments Hemoglobin (test code = 12383-9) 15.5 14.0-18.0 [facility] HospitalAutomated blood hematocrit (volume fraction)2019-12-25 04:55:00* Test Item Value Reference Range Interpretation Comments Hematocrit (test code = 4544-3) 47.8 38.2-49.6 [facility] HospitalAutomated erythrocyte mean corpuscular qqatwa6575-08-75 04:55:00* Test Item Value Reference Range Interpretation Comments Mean Corpuscular Volume (test code = 787-2) 88.5 81-99 [facility] HospitalAutomated erythrocyte mean corpuscular hemoglobin (mass per erythrocyte)2019-12-25 04:55:00* Test Item Value Reference Range Interpretation Comments Mean Corpuscular Hemoglobin (test code = 785-6) 28.7 28-32 [facility] HospitalAutomated erythrocyte mean corpuscular hemoglobin concentration measurement (mass/volume)2019-12-25 04:55:00* Test Item Value Reference Range Interpretation Comments Mean Corpuscular Hemoglobin Concent (test code = 786-4) 32.4 31-35 [facility] HospitalRDW LobBc-Bdw8192-91-11 04:55:00* Test Item Value Reference Range Interpretation Comments Red Cell Distribution Width (test code = 48339-3) 13.4 11.7 -14.4 [facility] HospitalAutomated blood platelet count (count/volume)2019-12-25 04:55:00* Test Item Value Reference Range Interpretation Comments Platelet Count (test code = 777-3) 258 140-360 [facility] HospitalAutnov[facility], [facility] healthed blood segmented neutrophil count as percentage of total mvfqnbeavd9647-91-05 04:55:00* Test Item Value Reference Range Interpretation Comments Neutrophils (%) (Auto) (test code = 13041-3) 54.3 38.7-80.0 [facility] HospitalAutomated blood lymphocyte count as percentage ot total ybaaswkjiw9478-85-16 04:55:00* Test Item Value Reference Range Interpretation Comments Lymphocytes (%) (Auto) (test code = 736-9) 35.0 18.0-39.1 [facility] HospitalAutomated blood monocyte count as percentage of total fqpubhiotx3333-22-37 04:55:00* Test Item Value Reference Range Interpretation Comments Monocytes (%) (Auto) (test code = 5905-5) 7.7 4.4-11.3 [facility] HospitalAutomated blood eosinophil count as percentage of total pqdyirjpaw2475-61-13 04:55:00* Test Item Value Reference Range Interpretation Comments Eosinophils (%) (Auto) (test code = 713-8) 2.0 0.0-6.0 [facility] HospitalAutomated blood basophil count as percentage of total npfreavxdc8254-04-54 04:55:00* Test Item Value Reference Range Interpretation Comments Basophils (%) (Auto) (test code = 706-2) 0.6 0.0-1.0 [facility] HospitalFluoroscopic procedure less than one hour xslbnsvq5727-43-39 04:55:00* Test Item Value Reference Range Interpretation Comments IM GRANULOCYTES % (test code = IM GRANULOCYTES %) 0.4 0.0- 1.0 [facility]Aut[facility], [facility]althed blood neutrophil count 2019-12-25 04:55:00* Test Item Value Reference Range Interpretation Comments Neutrophils # (Auto) (test code = 751-8) 5.9 2.1-6.9 [facility] HospitalBlood lymphocytes count (number/volume) 2019-12-25 04:55:00* Test Item Value Reference Range Interpretation Comments Lymphocytes # (Auto) (test code = 62620-3) 3.8 1.0-3.2 [facility] HospitalBlwelia health monocytes automated count (number/volume)2019-12-25 04:55:00* Test Item Value Reference Range Interpretation Comments Monocytes # (Auto) (test code = 742-7) 0.8 0.2-0.8 [facility] HospitalAutomated blood eosinophil count 2019-12-25 04:55:00* Test Item Value Reference Range Interpretation Comments Eosinophils # (Auto) (test code = 711-2) 0.2 0.0-0.4 [facility] HospitalAutomated blood basophil count (count/volume)2019-12-25 04:55:00* Test Item Value Reference Range Interpretation Comments Basophils # (Auto) (test code = 704-7) 0.1 0.0-0.1 [facility] HospitalFluoroscopic procedure less than one hour nkdsztkw0013-64-48 04:55:00* Test Item Value Reference Range Interpretation Comments Absolute Immature Granulocyte (auto (timmy t code = Absolute Immature Granulocyte (auto) 0.04 0-0.1 [facility] sodium measurement (moles/volume)2019-12-25 04:55:00* Test Item Value Reference Range Interpretation Comments Sodium Level (test code = 2951-2) 140 136-145 [facility]ererum or plasma potassium measurement (moles/volume)2019-12-25 04:55:00* Test Item Value Reference Range Interpretation Comments Potassium Level (test code = 2823-3) 3.3 3.5-5.1 [facility] Centererum or plasma chloride measurement (moles/volume)2019-12-25 04:55:00* Test Item Value Reference Range Interpretation Comments Chloride Level (test code = 2075-0) 104 98-107 [facility]ererum or plasma carbon dioxide, total measurement (moles/volume)2019-12-25 04:55:00* Test Item Value Reference Range Interpretation Comments Carbon Dioxide Level (test code = 2028-9) 28 22-29 [facility] Centererum or plasma anion qxg4799-61-13 04:55:00* Test Item Value Reference Range Interpretation Comments Anion Gap (test code = 22696-5) 11.3 8-16 [facility]ererum or plasma urea nitrogen measurement (mass/volume)2019-12-25 04:55:00* Test Item Value Reference Range Interpretation Comments Blood Urea Nitrogen (test code = 3094-0) 16 7-26 [facility]ererum or plasma creatinine measurement (mass/volume)2019-12-25 04:55:00* Test Item Value Reference Range Interpretation Comments Creatinine (test code = 2160-0) 0.84 0.72-1.25 [facility] Centererum or plasma urea nitrogen/creatinine mass whiqk9308-70-37 04:55:00* Test Item Value Reference Range Interpretation Comments BUN/Creatinine Ratio (test code = 3097-3) 19 6-25 [facility] HospitalEstimated glomerular filtration rate (GFR) vigvwtprbfgjr2539-72-19 04:55:00* Test Item Value Reference Range Interpretation Comments Estimat Glomerular Filtration Rate (test code = 600164009) > 60 >60 Ranges were taken from the National Kidney Disease Education Program and the [facility] Foundation literature.Reference ranges:60 or greater: Daivfn77-88 ( for 3 consecutive months): Chronic kidney disease 15 or less: Kidney failureMemorial Hermann Katy HospitalGlucose elwfqtqrnsa5945-51-69 04:55:00* Test Item Value Reference Range Interpretation Comments Glucose Level (test code = GXJ2131) 81 74-118 [facility] Centererum or plasma calcium measurement (mass/volume)2019-12-25 04:55:00* Test Item Value Reference Range Interpretation Comments Calcium Level (test code = 99641-4) 9.7 8.4-10.2 [facility] HospitalBlood leukocytes automated count (number/volume)2019-12-25 04:55:00* Test Item Value Reference Range Interpretation Comments White Blood Count (test code = 6690-2) 10.86 4.8-10.8 [facility] HospitalBlood erythrocytes automated count (number/volume)2019-12-25 04:55:00* Test Item Value Reference Range Interpretation Comments Red Blood Count (test code = 789-8) 5.40 4.3-5.7 [facility] HospitalBlood hemoglobin measurement (moles/volume)2019-12-25 04:55:00* Test Item Value Reference Range Interpretation Comments Hemoglobin (test code = 33845-0) 15.5 14.0-18.0 [facility] HospitalAutomated blood hematocrit (volume fraction)2019-12-25 04:55:00* Test Item Value Reference Range Interpretation Comments Hematocrit (test code = 4544-3) 47.8 38.2-49.6 [facility] HospitalAutomated erythrocyte mean corpuscular axpmkm2534-62-59 04:55:00* Test Item Value Reference Range Interpretation Comments Mean Corpuscular Volume (test code = 787-2) 88.5 81-99 [facility] HospitalAutomated erythrocyte mean corpuscular hemoglobin (mass per erythrocyte)2019-12-25 04:55:00* Test Item Value Reference Range Interpretation Comments Mean Corpuscular Hemoglobin (test code = 785-6) 28.7 28-32 [facility] HospitalAutomated erythrocyte mean corpuscular hemoglobin concentration measurement (mass/volume)2019-12-25 04:55:00* Test Item Value Reference Range Interpretation Comments Mean Corpuscular Hemoglobin Concent (test code = 786-4) 32.4 31-35 [facility] HospitalRDW EdkHx-Hlb6351-52-11 04:55:00* Test Item Value Reference Range Interpretation Comments Red Cell Distribution Width (test code = 40531-6) 13.4 11.7 -14.4 [facility] HospitalAutomated blood platelet count (count/volume)2019-12-25 04:55:00* Test Item Value Reference Range Interpretation Comments Platelet Count (test code = 777-3) 258 140-360 [facility] HospitalAutomated blood segmented neutrophil count as percentage of total uqqhwqmxwk3091-10-07 04:55:00* Test Item Value Reference Range Interpretation Comments Neutrophils (%) (Auto) (test code = 41333-4) 54.3 38.7-80.0 [facility] HospitalAutomated blood lymphocyte count as percentage ot total meimpqodgx3477-23-98 04:55:00* Test Item Value Reference Range Interpretation Comments Lymphocytes (%) (Auto) (test code = 736-9) 35.0 18.0-39.1 [facility] HospitalAutomated blood monocyte count as percentage of total fabrbgpgjh4283-74-51 04:55:00* Test Item Value Reference Range Interpretation Comments Monocytes (%) (Auto) (test code = 5905-5) 7.7 4.4-11.3 [facility] HospitalAutomated blood eosinophil count as percentage of total ziirpyntsa0524-14-21 04:55:00* Test Item Value Reference Range Interpretation Comments Eosinophils (%) (Auto) (test code = 713-8) 2.0 0.0-6.0 [facility] HospitalAutomated blood basophil count as percentage of total ztsqpioihk7907-85-73 04:55:00* Test Item Value Reference Range Interpretation Comments Basophils (%) (Auto) (test code = 706-2) 0.6 0.0-1.0 [facility] HospitalFluoroscopic procedure less than one hour dlznmiyg1127-75-76 04:55:00* Test Item Value Reference Range Interpretation Comments IM GRANULOCYTES % (test code = IM GRANULOCYTES %) 0.4 0.0- 1.0 [facility] HospitalAutomated blood neutrophil count 2019-12-25 04:55:00* Test Item Value Reference Range Interpretation Comments Neutrophils # (Auto) (test code = 751-8) 5.9 2.1-6.9 [facility] HospitalBlood lymphocytes count (number/volume) 2019-12-25 04:55:00* Test Item Value Reference Range Interpretation Comments Lymphocytes # (Auto) (test code = 43984-9) 3.8 1.0-3.2 [facility] HospitalBlood monocytes automated count (number/volume)2019-12-25 04:55:00* Test Item Value Reference Range Interpretation Comments Monocytes # (Auto) (test code = 742-7) 0.8 0.2-0.8 [facility] HospitalAutomated blood eosinophil count 2019-12-25 04:55:00* Test Item Value Reference Range Interpretation Comments Eosinophils # (Auto) (test code = 711-2) 0.2 0.0-0.4 [facility] HospitalAutomated blood basophil count (count/volume)2019-12-25 04:55:00* Test Item Value Reference Range Interpretation Comments Basophils # (Auto) (test code = 704-7) 0.1 0.0-0.1 [facility] HospitalFluoroscopic procedure less than one hour pjrchkzd0877-36-01 04:55:00* Test Item Value Reference Range Interpretation Comments Absolute Immature Granulocyte (auto (timmy t code = Absolute Immature Granulocyte (auto) 0.04 0-0.1 [facility]ererum or plasma sodium measurement (moles/volume)2019-12-25 04:55:00* Test Item Value Reference Range Interpretation Comments Sodium Level (test code = 2951-2) 140 136-145 [facility]ererum or plasma potassium measurement (moles/volume)2019-12-25 04:55:00* Test Item Value Reference Range Interpretation Comments Potassium Level (test code = 2823-3) 3.3 3.5-5.1 [facility]ererum or plasma chloride measurement (moles/volume)2019-12-25 04:55:00* Test Item Value Reference Range Interpretation Comments Chloride Level (test code = 2075-0) 104 98-107 [facility]ererum or plasma carbon dioxide, total measurement (moles/volume)2019-12-25 04:55:00* Test Item Value Reference Range Interpretation Comments Carbon Dioxide Level (test code = 2028-9) 28 22-29 [facility] Centererum or plasma anion ngb8275-35-41 04:55:00* Test Item Value Reference Range Interpretation Comments Anion Gap (test code = 78461-6) 11.3 8-16 [facility]ererum or plasma urea nitrogen measurement (mass/volume)2019-12-25 04:55:00* Test Item Value Reference Range Interpretation Comments Blood Urea Nitrogen (test code = 3094-0) 16 7-26 [facility]ererum or plasma creatinine measurement (mass/volume)2019-12-25 04:55:00* Test Item Value Reference Range Interpretation Comments Creatinine (test code = 2160-0) 0.84 0.72-1.25 [facility]ererum or plasma urea nitrogen/creatinine mass qhiiv5232-79-79 04:55:00* Test Item Value Reference Range Interpretation Comments BUN/Creatinine Ratio (test code = 3097-3) 19 6-25 [facility] HospitalEstimated glomerular filtration rate (GFR) mcmrojtjjfvjl0611-81-28 04:55:00* Test Item Value Reference Range Interpretation Comments Estimat Glomerular Filtration Rate (test code = 907463480) > 60 >60 Ranges were taken from the National Kidney Disease Education Program and the [facility] Kid[facility] Foundation literature.Reference ranges:60 or greater: Rxwlhn72-38 ( for 3 consecutive months): Chronic kidney disease 15 or less: Kidney failureMemorial Hermann Katy HospitalGlucose vmqegmefzdx4024-13-31 04:55:00* Test Item Value Reference Range Interpretation Comments Glucose Level (test code = MTS9528) 81 74-118 [facility]ererum or plasma calcium measurement (mass/volume)2019-12-25 04:55:00* Test Item Value Reference Range Interpretation Comments Calcium Level (test code = 24429-2) 9.7 8.4-10.2 [facility] HospitalFluoroscopic procedure less than one hour rofretpf5035-13-35 08:23:00* Test Item Value Reference Range Interpretation Comments Hemoglobin A1c Percent (test code = Hemoglobin A1c Percent) 5.8 4.0-7.0 [facility]ererum or plasma triglyceride measurement (mass/volume)2019-12-24 08:23:00* Test Item Value Reference Range Interpretation Comments Triglycerides Level (test code = 2571-8) 65 0-149 [facility]ererum or plasma cholesterol measurement (mass/volume)2019-12-24 08:23:00* Test Item Value Reference Range Interpretation Comments Cholesterol Level (test code = 2093-3) 101 0-199 Less than 200 mg/dL Low Zwub704 - 239 mg/dL Borderline Hnox303 m g/dl and greater High Risk [facility] Centererum or plasma cholesterol in LDL measurement (mass/volume) 2019-12-24 08:23:00* Test Item Value Reference Range Interpretation Comments LDL Cholesterol (test code = 2089-1) 45 60-130 [facility]ererum or plasma cholesterol in HDL measurement (mass/volume)2019-12-24 08:23:00* Test Item Value Reference Range Interpretation Comments HDL Cholesterol (test code = 2085-9) 43 40-60 [facility] Centererum or plasma total cholesterol/cholesterol in HDL mass bvhez1508-76-48 08:23:00* Test Item Value Reference Range Interpretation Comments Cholesterol/HDL Ratio (test code = 9830-1) 2.3 3.9-4.7 [facility]ererum or plasma creatine kinase measurement (enzymatic activity/volume)2019-12-24 08:23:00* Test Item Value Reference Range Interpretation Comments Creatine Kinase (test code = 2157-6) 33 30-200 [facility] Centererum or plasma creatine kinase MB measurement (mass/volume)2019-12-24 08:23:00* Test Item Value Reference Range Interpretation Comments Creatine Kinase MB (test code = 27257-3) 0.70 0-5.0 [facility] HospitalTroponin I measurement by highly sensitive enzyme jrtgjhddvqo4239-80-60 08:23:00* Test Item Value Reference Range Interpretation Comments Troponin I (test code = 42005-9) < 0.001 0-0.300 [facility] HospitalFluoroscopic procedure less than one hour yuvldofb3701-40-22 08:23:00* Test Item Value Reference Range Interpretation Comments Hemoglobin A1c Percent (test code = Hemoglobin A1c Percent) 5.8 4.0-7.0 [facility]ererum or plasma triglyceride measurement (mass/volume)2019-12-24 08:23:00* Test Item Value Reference Range Interpretation Comments Triglycerides Level (test code = 2571-8) 65 0-149 [facility] (mass/volume)2019-12-24 08:23:00* Test Item Value Reference Range Interpretation Comments Cholesterol Level (test code = 2093-3) 101 0-199 Less than 200 mg/dL Low Ffyq820 - 239 mg/dL Borderline Imnw184 m g/dl and greater High Risk [facility] cholesterol in LDL measurement (mass/volume) 2019-12-24 08:23:00* Test Item Value Reference Range Interpretation Comments LDL Cholesterol (test code = 2089-1) 45 60-130 [facility] cholesterol in HDL measurement (mass/volume)2019-12-24 08:23:00* Test Item Value Reference Range Interpretation Comments HDL Cholesterol (test code = 2085-9) 43 40-60 [facility] total cholesterol/cholesterol in HDL mass [id number] 08:23:00* Test Item Value Reference Range Interpretation Comments Cholesterol/HDL Ratio (test code = 9830-1) 2.3 3.9-4.7 [facility] creatine kinase measurement (enzymatic activity/volume)2019-12-24 08:23:00* Test Item Value Reference Range Interpretation Comments Creatine Kinase (test code = 2157-6) 33 30-200 [facility] creatine kinase MB measurement (mass/volume)2019-12-24 08:23:00* Test Item Value Reference Range Interpretation Comments Creatine Kinase MB (test code = 89354-1) 0.70 0-5.0 [facility] measurement by highly sensitive enzyme osquzuuicaf8156-63-35 08:23:00* Test Item Value Reference Range Interpretation Comments Troponin I (test code = 10941-3) < 0.001 0-0.300 [facility] ([facility])2019-12-23 16:14:00 [facility] [address] [address] Patient Name: SRIRAM CONCEPCION MR #: [id number] : 1970 Age/Sex: 49/M Req #: [id number] Adm Physician: Ordered by: JOSE BOSWELL MD Report #: [id number] Location: ER Room/Bed: Procedure: [id number] DX/CHEST SIN GLE (PORTABLE) Exam Date: 12/23/19 Exam Time: 1520 REPORT STATUS: Signed EXAMINATION : CHEST SINGLE (PORTABLE) INDICATION: [id number] COMPARISON: None FINDINGS: AP view Limited by body habitus . TUBES and LINES: None. LUNGS: Lungs are well inflated. There is no e vidence of pneumonia or pulmonary edema. PLEURA: No pleural effusion or pneumothorax. HEART AND MEDIASTINUM: The cardiomediastinal silhouette is u nremarkable. BONES AND SOFT TISSUES: No acute osseous lesion. Soft ti ssues are unremarkable. UPPER ABDOMEN: No free air under the diaphragm. IMPRESSION: No acute thoracic abnormality. Signed by: Dr. Jessy Haynes MD on 12/23/2019 4:14 PM Dictated By: ERVIN HAYNES MD Electro nically Signed By: ERVIN HAYNES MD on 12/23/191613 Transcribed By: CHAGO on 12/23/191613 COPY TO: JOSE BOSWELL MD BNP Rsa-iSiv9160-22-09 15:54:00* Test Item Value Reference Range Interpretation Comments B-Type Natriuretic Peptide (test code = 04606-1) 34.1 0-100 [facility] Tpq-[id number] 15:54:00* Test Item Value Reference Range Interpretation Comments B-Type Natriuretic Peptide (test code = 61121-0) 34.1 0-100 [facility] HospitalFluoroscopic procedure less than one hour mauprrnw5729-50-83 15:49:00* Test Item Value Reference Range Interpretation Comments Coronavirus (PCR) (test code = Coronavirus (PCR)) NOT DETECTED NOTD ETECTED SARS-COV-2 (COVID19), HIGHRISK, RT-PCRNegative results do not preclude SARS-CoV- 2 infection and should not be used as the sole basis for patient management deci sions. Negative results must be combined with clinical observations, patient his tory, and epidemiological information. Optimum specimen types and timing for pea k viral levels during infections caused by SARS-CoV-2 have not been determined. Collection of multiple specimens ot types of specimens may be necessary to detec t virus. Improper specimen collection and handling, sequence variability under p rimers/probes, or organism present below the limit of detection may lead to fals e negative results. Positive and negative predictive values of testing are highl y dependent on prevalance. False negative test results are more likely when prev alence is high.The expected result is negative (not detected).The SARS-CoV-2 timmy t is intended for the qualitative detection of nucleic acid from SARS-CoV-2 in n asopharyngeal and oropharyngeal swab samples from patients who meet COVID-19 cli nical and or epidemiological criteria. For lower respiratory tract specimens, th e assay is submitted for authoriztion by FDA under an Emergency Use Authorizatio n (EUA). Testing methodology is real time RT-PCR. If received as separate collec tion devices, nasopharygeal and oropharyngeal specimens are combined for analysi s. Additional specimens may be split to a separate accession for analysi and rep orting as this test includes a single unit of service.Test results must be corre lated with clinical presentation and evaluated in the context of other laborator y and epidemiologic data. Test performance can be affected because the epidemiol ogy and clinical spectrum of infection caused by SARS-CoV-2 is not fully known. For example, the optimum types of specimens to collect and when during the cours e of infection these specimens are most likely to contain detectable viral RNA m ay not be known.This test has not been Food and Drug Administration (FDA) cleare d or approved and has been authorized by FDA under an Emergency Use Authorizatio n (EUA). The test is only authorized for the duration of the declaration that ci rcumstances exist justifying the authorization of emergency use of in vitro diag nostic tests for detection and/or diagnosis of SARS-CoV-2 under section 564(b) o f the Act, 21 U.S.C. section 360bbb-3(b)(1), unless the authorization is termina stefano or revoked sooner. [facility] are certified under the C linical Laboratory Improvement Amendments of 1988 (CLIA), 42 U.S.C. section 263a , to perform high complexity tests.Specimen sent to [facility] and testing performed by [facility] [id number] [place] [address] [phone] Director: Emerson De Leon M.D.CLIA # [id number] HospitalFluoroscopic procedure less than one hour grefdovo6473-09-24 15:49:00* Test Item Value Reference Range Interpretation Comments Coronavirus (PCR) (test code = Coronavirus (PCR)) NOT DETECTED NOTD ETECTED SARS-COV-2 (COVID19), HIGHRISK, RT-PCRNegative results do not preclude SARS-CoV- 2 infection and should not be used as the sole basis for patient management deci sions. Negative results must be combined with clinical observations, patient his tory, and epidemiological information. Optimum specimen types and timing for pea k viral levels during infections caused by SARS-CoV-2 have not been determined. Collection of multiple specimens ot types of specimens may be necessary to detec t virus. Improper specimen collection and handling, sequence variability under p rimers/probes, or organism present below the limit of detection may lead to fals e negative results. Positive and negative predictive values of testing are highl y dependent on prevalance. False negative test results are more likely when prev alence is high.The expected result is negative (not detected).The SARS-CoV-2 timmy t is intended for the qualitative detection of nucleic acid from SARS-CoV-2 in n asopharyngeal and oropharyngeal swab samples from patients who meet COVID-19 cli nical and or epidemiological criteria. For lower respiratory tract specimens, th e assay is submitted for authoriztion by FDA under an Emergency Use Authorizatio n (EUA). Testing methodology is real time RT-PCR. If received as separate collec tion devices, nasopharygeal and oropharyngeal specimens are combined for analysi s. Additional specimens may be split to a separate accession for analysi and rep orting as this test includes a single unit of service.Test results must be corre lated with clinical presentation and evaluated in the context of other laborator y and epidemiologic data. Test performance can be affected because the epidemiol ogy and clinical spectrum of infection caused by SARS-CoV-2 is not fully known. For example, the optimum types of specimens to collect and when during the cours e of infection these specimens are most likely to contain detectable viral RNA m ay not be known.This test has not been Food and Drug Administration (FDA) cleare d or approved and has been authorized by FDA under an Emergency Use Authorizatio n (EUA). The test is only authorized for the duration of the declaration that ci rcumstances exist justifying the authorization of emergency use of in vitro diag nostic tests for detection and/or diagnosis of SARS-CoV-2 under section 564(b) o f the Act, 21 U.S.C. section 360bbb-3(b)(1), unless the authorization is termina stefano or revoked sooner. [facility] are certified under the [facility] Region[facility] Laboratory Improvement Amendments of 1988 (CLIA), 42 U.S.C. section 263a , to perform high complexity tests.Specimen sent to [facility] and testing performed by [facility] [id number] [place] [address] [phone] Director: Emerson De Leon M.D.CLIA # [id number] HospitalProthrombin time (PT) in platelet poor plasma by coagulation [id number] 15:15:00* Test Item Value Reference Range Interpretation Comments Prothrombin Time (test code = 5902-2) 12.6 11.9-14.5 [facility] HospitalINR in Platelet poor plasma by Coagulation etaye8262-13-37 15:15:00* Test Item Value Reference Range Interpretation Comments Prothromb Time International Ratio (test code = 6301-6) 0.89 Oral Anticoagulant Therapy INR Values:1. Low Intensity Therapy 1.5 - 2.02 . Moderate Intensity Therapy 2.0 - 3.03. High Intensity Therapy(1) 2.5 - 3. 54. High Intensity Therapy(2) 3.0 - 4.05. Panic Value INR > 5.0 [facility] HospitalActivated partial thromboplastin time (aPTT) in platelet poor plasma by coagulation tuliu2847-73-62 15:15:00* Test Item Value Reference Range Interpretation Comments Activated Partial Thromboplast Time (test code = 40490-6) 22.3 23.8-35.5 [facility] magnesium measurement (mass/volume)2019-12-23 15:15:00* Test Item Value Reference Range Interpretation Comments Magnesium Level (test code = 51857-5) 2.0 1.3-2.1 [facility] plasma total bilirubin measurement (mass/volume)2019-12-23 15:15:00* Test Item Value Reference Range Interpretation Comments Total Bilirubin (test code = 1975-2) 0.8 0.2-1.2 [facility] HospitalFluoroscopic procedure less than one hour cmcbnjhd7486-18-51 15:15:00* Test Item Value Reference Range Interpretation Comments Aspartate Amino Transf (AST/SGOT) (test code = Aspartate Amino Transf (AST/SGOT)) 33 5-34 [facility] or plasma alanine aminotransferase measurement (enzymatic activity/volume)2019-12-23 15:15:00* Test Item Value Reference Range Interpretation Comments Alanine Aminotransferase (ALT/SGPT) (test code = 1742-6) 22 0-55 [facility] plasma protein measurement (mass/volume)2019-12-23 15:15:00* Test Item Value Reference Range Interpretation Comments Total Protein (test code = 2885-2) 7.8 6.5-8.1 [facility] albumin measurement (mass/volume)2019-12-23 15:15:00* Test Item Value Reference Range Interpretation Comments Albumin (test code = 1751-7) 3.9 3.5-5.0 [facility] HospitalPlasma globulin measurement (mass/volume) 2019-12-23 15:15:00* Test Item Value Reference Range Interpretation Comments Globulin (test code = 44393-7) 3.9 2.3-3.5 [facility] albumin/globulin mass [id number] 15:15:00* Test Item Value Reference Range Interpretation Comments Albumin/Globulin Ratio (test code = 1759-0) 1.0 0.8-2.0 [facility] plasma alkaline phosphatase measurement (enzymatic activity/volume)2019-12-23 15:15:00* Test Item Value Reference Range Interpretation Comments Alkaline Phosphatase (test code = 6768-6) 66 40-150 [facility] HospitalProthrombin time (PT) in platelet poor plasma by coagulation owqdc6923-00-91 15:15:00* Test Item Value Reference Range Interpretation Comments Prothrombin Time (test code = 5902-2) 12.6 11.9-14.5 [facility] HospitalINR in Platelet poor plasma by Coagulation [id number] 15:15:00* Test Item Value Reference Range Interpretation Comments Prothromb Time International Ratio (test code = 6301-6) 0.89 Oral Anticoagulant Therapy INR Values:1. Low Intensity Therapy 1.5 - 2.02 . Moderate Intensity Therapy 2.0 - 3.03. High Intensity Therapy(1) 2.5 - 3. 54. High Intensity Therapy(2) 3.0 - 4.05. Panic Value INR > 5.0 [facility] HospitalActivated partial thromboplastin time (aPTT) in platelet poor plasma by coagulation tqbva2092-46-84 15:15:00* Test Item Value Reference Range Interpretation Comments Activated Partial Thromboplast Time (test code = 00784-8) 22.3 23.8-35.5 [facility] magnesium measurement (mass/volume)2019-12-23 15:15:00* Test Item Value Reference Range Interpretation Comments Magnesium Level (test code = 08599-0) 2.0 1.3-2.1 [facility] plasma total bilirubin measurement (mass/volume)2019-12-23 15:15:00* Test Item Value Reference Range Interpretation Comments Total Bilirubin (test code = 1975-2) 0.8 0.2-1.2 [facility] HospitalFluoroscopic procedure less than one hour ntrtqdqn7450-24-20 15:15:00* Test Item Value Reference Range Interpretation Comments Aspartate Amino Transf (AST/SGOT) (test code = Aspartate Amino Transf (AST/SGOT)) 33 5-34 [facility] plasma alanine aminotransferase measurement (enzymatic activity/volume)2019-12-23 15:15:00* Test Item Value Reference Range Interpretation Comments Alanine Aminotransferase (ALT/SGPT) (test code = 1742-6) 22 0-55 [facility] protein measurement (mass/volume)2019-12-23 15:15:00* Test Item Value Reference Range Interpretation Comments Total Protein (test code = 2885-2) 7.8 6.5-8.1 [facility] plasma albumin measurement (mass/volume)2019-12-23 15:15:00* Test Item Value Reference Range Interpretation Comments Albumin (test code = 1751-7) 3.9 3.5-5.0 [facility] HospitalPlasma globulin measurement (mass/volume) 2019-12-23 15:15:00* Test Item Value Reference Range Interpretation Comments Globulin (test code = 93844-5) 3.9 2.3-3.5 [facility] albumin/globulin mass [id number] 15:15:00* Test Item Value Reference Range Interpretation Comments Albumin/Globulin Ratio (test code = 1759-0) 1.0 0.8-2.0 [facility] plasma alkaline phosphatase measurement (enzymatic activity/volume)2019-12-23 15:15:00* Test Item Value Reference Range Interpretation Comments Alkaline Phosphatase (test code = 6768-6) 66 40-150 [facility] HospitalCBC W/O [id number] 00:12:00* Test Item Value Reference Range Interpretation Comments WHITE BLOOD CELL (test code = WBC) 10.2 K/mm3 4.5-12.5 N RED BLOOD CELL (test code = RBC) 5.23 mill/mm3 4.0-5.8 N HEMOGLOBIN (test code = HGB) 15.1 gram/dL 13.0-17.5 N HEMATOCRIT (test code = HCT) 47.3 % 42.0-52.0 N MEAN CELL VOLUME (test code = MCV) 90.4 fL 80-98 N MEAN CELL HGB (test code = MCH) 28.9 picogram 27.0-33.0 N MEAN CELL HGB CONCETRATION (test code = MCHC) 31.9 gram/dL 33.0-36. 0 L RED CELL DISTRIBUTION WIDTH (test code = RDW) 12.9 % 11.6-16. 2 N PLATELET COUNT (test code = PLT) 314 K/mm3 150-450 N MEAN PLATELET VOLUME (test code = MPV) 9.7 fL 6.7-11.0 N BASIC METABOLIC [id number] 00:08:00* Test Item Value Reference Range Interpretation Comments SODIUM (test code = NA) 139 mmol/L 136-145 N POTASSIUM (test code = K) 3.4 mmol/L 3.5-5.1 L CHLORIDE (test code = CL) 101.0 mmol/L 98-107 N CARBON DIOXIDE (test code = CO2) 32.0 mmol/L 21-32 N ANION GAP (test code = GAP) 9.4 10-20 L GLUCOSE (test code = GLU) 174 mg/dL 74-106 H BLOOD UREA NITROGEN (test code = BUN) 19 mg/dL 7-18 H GLOMERULAR FILTRATION RATE (test code = GFR) > 60 mL/min >=60 Estimated GFR by using Modified MDRD formula.Chronic kidney disease is defined as either kidney damageor GFR <60 mL/min/1.73 m2 for >3 months. CREATININE (test code = CREAT) 1.00 mg/dL 0.7-1.3 N BUN/CREATININE RATIO (test code = BUN/CREA) 18.1 10-20 N CALCIUM (test code = CA) 9.6 mg/dL 8.5-10.1 N [id number] 00:08:00* Test Item Value Reference Range Interpretation Comments TROPONIN-I (test code = TROPI) <0.015 ng/mL 0-0.045 N BASIC METABOLIC [id number] 23:57:00* Test Item Value Reference Range Interpretation Comments SODIUM (test code = NA) 139 mmol/L 136-145 N POTASSIUM (test code = K) 3.4 mmol/L 3.5-5.1 L CHLORIDE (test code = CL) 101.0 mmol/L 98-107 N CARBON DIOXIDE (test code = CO2) mmol/L 21-32 ANION GAP (test code = GAP) 10-20 GLUCOSE (test code = GLU) mg/dL 74-106 BLOOD UREA NITROGEN (test code = BUN) mg/dL 7-18 GLOMERULAR FILTRATION RATE (test code = GFR) mL/min >=60 CREATININE (test code = CREAT) mg/dL 0.7-1.3 BUN/CREATININE RATIO (test code = BUN/CREA) 10-20 CALCIUM (test code = CA) 9.6 mg/dL 8.5-10.1 N [id number] 23:57:00* Test Item Value Reference Range Interpretation Comments TROPONIN-I (test code = TROPI) ng/mL 0-0.045 - XR CHEST 1 [id number] 23:32:00 FAX: Chelsea José DO [place]: [address]: REG Name: SRIRAM GIMENEZ [facility] : [birth year] Age/S: 49/M [address] [facility] Unit #: [id number] Loc: [place], [place] [address] Phys: Chelsea José DO Acct: [id number] Dis Date: Status: REG ER PHONE #: [phone] Exam Date: 07/27/2019 2330 FAX #: [phone] Reason: CHEST PAIN EXAMS: CPT CODE: [id number] XR CHEST 1 V 10067 LOCATION: Q15 HISTOR Y: 49-year-old male who presents with chest pain. [...] Technologist: Ana Rosa Samuels Trnscrd Date/Time/By: 07/27/2019 (9265) : By: [email or web address] Orig Print D/T: S: 07/27/2019 (2888) PAGE 1 Signed Report
--- NOTE | 2020-04-01 00:37 | Emergency Department Note ---
History of Present Illnes History of Present Illness Chief Complaint: General Medicine Complaints History of Present Illness This is a 49 year old male STATES HE HAD A HIGH BLOOD PRESSURE READING AROUND 2100 THIS EVENING, ALSO ADMITS TO EATING A SMALL PORTION OF BIG MAC CHEESEBURGER AND CHICKEN BROTH. PATIENT TOOK A LOPRESSOR 50MG TAB AT 2130, AT THIS MOMENT PATIENT DENIES CHEST PAIN, SHORTNESS OF BREATH, OR NECK PAIN. NO SIGNS OF STROKE NOTED, ANSWERS ALL QUESTIONS ADEQUATELY. . Historian: Patient Onset (how long ago): hour(s) (2) Location: none Quality: elevated blood pressure Radiation: Reports non-radiation Severity: mild Onset quality: sudden Duration (how long): hour(s) (2) Progression: unchanged Chronicity: recurrent Context: Denies recent illness, Denies recent surgery, Denies trauma/injury Relieving factors: none Exacerbating factors: none Treatments prior to arrival: other (took an extra lopressor 50 mg river captain) Past Medical/Family History Physician Review I have reviewed the patient's past medical and family history. Any updates have been documented here. Past Medical History Recent Fever: No Clinical Suspicion of Infectio: No New/Unexplained Change in Ment: No Past Medical History: Hypertension, Diabetes Other Medical History: GOUT Past Surgical History: None, Appendectomy Social History Smoking Cessation: Never Smoker Counseling Performed: No Alcohol Use: Occasional Any Illegal Drug Use: No Other Last Tetanus: UNKNOWN Any Pre-Existing Lines (PICC,: No Review of Systems Review of Systems Constitutional: Reports no symptoms EENTM: Reports no symptoms Cardiovascular: Reports no symptoms Respiratory: Reports no symptoms Gastrointestinal: Reports no symptoms Genitourinary: Reports no symptoms Musculoskeletal: Reports no symptoms Integumentary: Reports no symptoms Neurological: Reports no symptoms Psychological: Reports no symptoms Endocrine: Reports no symptoms Hematological/Lymphatic: Reports no symptoms Physical Exam Related Data Allergies: Coded Allergies: No Known Allergies (Unverified , 12/23/19) Triage Vital Signs Vital Signs Date Time Temp Pulse Resp B/P (MAP) Pulse Ox O2 Delivery O2 Flow Rate FiO2 03/14/20 23:02 98.0 64 20 134/86 99 Room Air Vital signs reviewed: Yes Physical Exam CONSTITUTIONAL Constitutional: Present well-developed, Present well-nourished; Absent distressed HENT HENT: Present normocephalic, Present atraumatic, Present oropharynx clear/moist, Present nose normal HENT L/R: Present left ext ear normal, Present right ext ear normal EYES Eyes: Reports PERRL, Reports conjunctivae normal NECK Neck: Present ROM normal PULMONARY Pulmonary: Present effort normal, Present breath sounds normal CARDIOVASCULAR Cardiovascular: Present regular rhythm, Present heart sounds normal, Present capillary refill normal, Present normal rate GASTROINTESTINAL Abdominal: Present soft, Present nontender, Present bowel sounds normal GENITOURINARY Genitourinary: Present exam deferred SKIN Skin: Present warm, Present dry MUSCULOSKELETAL Musculoskeletal: Present ROM normal NEUROLOGICAL Neurological: Present alert, Present oriented x 3, Present no gross motor or sensory deficits PSYCHOLOGICAL Psychological: Present mood/affect normal, Present judgement normal Assessment & Plan Medical Decision Making MDM pt with elevated blood pressure at home without any symptoms took extra lopressor 50 mg river captain bp not elevated on arrival to er and pt without complaints Assessment & Plan Final Impression: (1) HTN (hypertension) Depart Disposition: HOME, SELF-CARE Last Vital Signs Date Time Temp Pulse Resp B/P (MAP) Pulse Ox O2 Delivery O2 Flow Rate FiO2 03/14/20 23:22 64 18 99 03/14/20 23:12 98.0 134/86 Room Air Home Meds Reported Medications Metoprolol Tartrate (METOPROLOL TARTRATE) 50 Mg Tablet, 50 MG PO DAILY, TAB 03/20/20 Pantoprazole Sodium (PROTONIX) 40 Mg Suspdr.pkt, 40 MG PO DAILY, #30 TAB 12/26/19 Amlodipine Besylate (NORVASC) 10 Mg Tab, 10 MG PO DAILY, TAB 12/26/19 Aspirin (ASPIR 81) 81 Mg Tablet.dr, DAILY 12/26/19 Atorvastatin Calcium (LIPITOR) 20 Mg Tablet, 40 MG PO HS, #30 TAB 12/26/19 [place]-3 Fatty Acids (OMEGA-3) 1,000 Mg Capsule, 1 TAB PO DAILY 12/23/19 [alopurinol] No Conflict Check, 300 MG PO REVERSING MILL ROLLER 12/23/19 [atorvastin] No Conflict Check, 40 MG PO HS 12/23/19 [edarbi CLD] No Conflict Check, 40 MG PO DAILY 12/23/19 LICHA FAN MD Apr 01, 2020 00:37
== END 2020-03-14 23:30 | disposition home or self-care (01) ==
LOC: ER 22:26
DX: I10 Essential (primary) hypertension (principal); E11.9 Type 2 diabetes mellitus without complications; M10.9 Gout, unspecified
CPT/HCPCS: 99282

== ENCOUNTER 2020-03-19 19:25 | Observation (INO) | payer SELFPAY ==
[~2020-03-19] VITALS: Ht 167.6 cm; Wt 77.1 kg
--- NOTE | 2020-03-19 19:50 | Emergency Department Note ---
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 Denies fevers or myalgias . Arrival Mode: Car History limited by: language barrier Onset (how long ago): day(s) (3) Radiation: Reports non-radiation Severity: moderate Duration (how long): day(s) (3) Timing of current episode: constant Progression: worsening Chronicity: new Relieving factors: none Exacerbating factors: none Associated symptoms: Reports chest pain, Reports headaches, Reports shortness of breath Previous service: medications given, tests performed, re-evaluation Past Medical/Family History Physician Review I have reviewed the patient's past medical and family history. Any updates have been documented here. Past Medical History Recent Fever: No Clinical Suspicion of Infectio: No New/Unexplained Change in Ment: No Past Medical History: Hypertension, Diabetes Other Medical History: GOUT Past Surgical History: None, Appendectomy Social History Smoking Cessation: Never Smoker Alcohol Use: None Any Illegal Drug Use: No Other Last Tetanus: UNKNOWN Review of Systems Review of Systems Constitutional: Denies no symptoms, Denies as per HPI, Denies chills, Denies diaphoresis, Denies fever, Denies malaise, Denies weakness, Denies other EENTM: Reports no symptoms Cardiovascular: Reports chest pain Respiratory: Reports dyspnea Gastrointestinal: Reports no symptoms Genitourinary: Reports no symptoms Musculoskeletal: Reports no symptoms Integumentary: Reports no symptoms Neurological: Reports no symptoms Psychological: Reports no symptoms Endocrine: Reports no symptoms Hematological/Lymphatic: Reports no symptoms Review of other systems: All other systems negative Physical Exam Related Data Allergies: Coded Allergies: No Known Allergies (Unverified , 12/23/19) Vital signs reviewed: Yes Physical Exam CONSTITUTIONAL Constitutional: Present well-developed, Present well-nourished HENT HENT: Present normocephalic, Present atraumatic, Present oropharynx clear/moist, Present nose normal HENT L/R: Present left ext ear normal, Present right ext ear normal EYES Eyes: Reports PERRL, Reports conjunctivae normal NECK Neck: Present ROM normal PULMONARY Pulmonary: Present effort normal, Present breath sounds normal CARDIOVASCULAR Cardiovascular: Present regular rhythm, Present heart sounds normal, Present capillary refill normal, Present normal rate, Present bradycardia GASTROINTESTINAL Abdominal: Present soft, Present nontender, Present bowel sounds normal GENITOURINARY Genitourinary: Present exam deferred SKIN Skin: Present warm, Present dry MUSCULOSKELETAL Musculoskeletal: Present ROM normal NEUROLOGICAL Neurological: Present alert, Present oriented x 3, Present no gross motor or sensory deficits PSYCHOLOGICAL Psychological: Present mood/affect normal, Present judgement normal Results Laboratory Lab results reviewed: Yes Laboratory comments Laboratory Tests Test 03/19/20 19:47 White Blood Count 11.31 x10e3/uL (4.8-10.8) Red Blood Count 5.26 x10e6/uL (4.3-5.7) Hemoglobin 15.0 g/dL (14.0-18.0) Hematocrit 46.8 % (38.2-49.6) Mean Corpuscular Volume 89.0 fL (81-99) Mean Corpuscular Hemoglobin 28.5 pg (28-32) Mean Corpuscular Hemoglobin Concent 32.1 g/dL (31-35) Red Cell Distribution Width 13.3 % (11.7-14.4) Platelet Count 267 x10e3/uL (140-360) Neutrophils (%) (Auto) 73.5 % (38.7-80.0) Lymphocytes (%) (Auto) 17.2 % (18.0-39.1) Monocytes (%) (Auto) 7.4 % (4.4-11.3) Eosinophils (%) (Auto) 1.1 % (0.0-6.0) Basophils (%) (Auto) 0.4 % (0.0-1.0) Neutrophils # (Auto) 8.3 (2.1-6.9) Lymphocytes # (Auto) 1.9 (1.0-3.2) Monocytes # (Auto) 0.8 (0.2-0.8) Eosinophils # (Auto) 0.1 (0.0-0.4) Basophils # (Auto) 0.1 (0.0-0.1) Absolute Immature Granulocyte (auto 0.05 x10e3/uL (0-0.1) Sodium Level 138 mmol/L (136-145) Potassium Level 4.3 mmol/L (3.5-5.1) Chloride Level 104 mmol/L (98-107) Carbon Dioxide Level 28 mmol/L (22-29) Anion Gap 10.3 mmol/L (8-16) Blood Urea Nitrogen 11 mg/dL (7-26) Creatinine 1.03 mg/dL (0.72-1.25) Estimat Glomerular Filtration Rate > 60 ML/MIN (60-) BUN/Creatinine Ratio 11 (6-25) Glucose Level 106 mg/dL (74-118) Calcium Level 9.7 mg/dL (8.4-10.2) Total Bilirubin 0.9 mg/dL (0.2-1.2) Aspartate Amino Transf (AST/SGOT) 14 IU/L (5-34) Alanine Aminotransferase (ALT/SGPT) 19 IU/L (0-55) Alkaline Phosphatase 84 IU/L (40-150) Creatine Kinase 50 IU/L (30-200) Creatine Kinase MB 0.80 ng/mL (0-5.0) Troponin I < 0.001 ng/mL (0-0.300) B-Type Natriuretic Peptide 43.8 pg/mL (0-100) Total Protein 7.0 g/dL (6.5-8.1) Albumin 3.7 g/dL (3.5-5.0) Globulin 3.3 g/dL (2.3-3.5) Albumin/Globulin Ratio 1.1 (0.8-2.0) Imaging Imaging results reviewed: Yes Impressions [place] [address] Patient Name: SRIRAM ADAMS MR #: [id number] 3 : 1970 Age/Sex: 49/M Req #: [id number] Adm Physician: Ordered by: ELVIN CASTILLO DO Report #: [id number] Location: ER Room/Bed: Procedure: [id number] CT/CT BRAIN WO Exam Date: Exam Time: REPORT STATUS: Signed CT BRAIN WO HISTORY: Headache COMPARISON: None. TECHNIQUE: Noncontrast axial scans were obtained from skull base to the vertex. Coronal and sagittal reconstructions obtained from the axial data. One or more of the following dose reduction techniques were used: Automated exposure control, adjustment of the mA and/or kV according to patient size, and/or utilization of iterative reconstruction technique. DISCUSSION: Scalp/Skull: Unremarkable. Brain sulci: Mildly prominent. Ventricles: Mild compensatory dilatation. Extra-axial spaces: No masses or fluid collections. Mild carotid siphon calcification. Parenchyma: Incidental subcentimeter pineal cyst. Otherwise, no mass, hemorrhage, or large vascular territory acute infarct. Dural sinuses: No abnormal densities. Sellar/Suprasellar region: Intact. Skull base: Intact. Incidental findings: Partially imaged mild right maxillary sinus mucosal thickening. Small left frontal sinus retention cyst. IMPRESSION: 1. No acute intracranial abnormalities. 2. Mild generalized cerebral volume loss. Signed by: Dr. Tip Serna M.D. on 03/19/2020 8:52 PM Dictated By: TIP SERNA MD 51 Transcribed By: CHAGO on 03/19/202051 COPY TO: ELVIN CASTILLO DO~ [place] [address] Patient Name: SRIRAM ADAMS MR #: [id number] 3 : 1970 Age/Sex: 49/M Req #: [id number] Adm Physician: Ordered by: ELVIN CASTILLO DO Report #: [id number] Location: ER Room/Bed: Procedure: [id number] CT/CT CHEST WO Exam Date: Exam Time: REPORT STATUS: Signed EXAMINATION: CT scan of the chest without contrast. TECHNIQUE: Helical CT images of the chest were performed from the lung apices to the level of the adrenal glands. No intravenous contrast was administered Coronal and sagittal reformatted images were obtained. Dose modulation, iterative reconstruction, and/or weight based adjustment of the mA/kV was utilized to reduce the radiation dose to as low as reasonably achievable. COMPARISON: None. CLINICAL HISTORY:Back and head pain DISCUSSION: ABSENCE OF INTRAVENOUS CONTRAST DECREASES SENSITIVITY FOR DETECTION OF FOCAL LESIONS AND VASCULAR PATHOLOGY. LINES/TUBES: None. LUNGS AND AIRWAYS: Scattered pulmonary cysts, otherwise the lungs are clear. No pulmonary nodules, masses or consolidation. The airways are normal, without endobronchial lesions. PLEURA: No pneumothorax or pleural effusions. HEART AND MEDIASTINUM: The thyroid gland is normal. The heart and pericardium are within normal limits. LYMPH NODES: There is no mediastinal, hilar or axillary lymphadenopathy. ABDOMEN: Limited contrast-enhanced views of the upper abdomen show no abnormality within the visualized liver, spleen, pancreas, or kidneys. The adrenal glands are normal. BONES AND SOFT TISSUES: No acute bony abnormalities. IMPRESSION: No acute CT finding. Signed by: Dr. Jama Raphael M.D. on 03/19/2020 8:50 PM Dictated By: JAMA RAPHAEL MD 49 Transcribed By: CHAGO on 03/19/202049 COPY TO: ELVIN CASTILLO DO~ Procedures 12 Lead ECG Interpretation ECG Interpretation : ECG: ECG 1 Churn Operator Margarine: Interpreted by ED physician Date: Mar 19, 2020 Time: 19:50 Prior ECG tracings: reviewed Rhythm: sinus rhythm Rate: normal BPM: 55 QRS axis: normal ST segments normal: Yes T waves normal: Yes Other findings: LVH Clinical Impression: non-specific ECG Assessment & Plan Medical Decision Making MDM 49 yom presents with chest pain. CMP, CBC, EKG, and cardiac enzymes ordered for consideration of ACS, PE, costocondritis, Chest wall pain, COVID-19 infectrion and pneumothorax considered. labs, imaging and EKG reviewed . Plan to admit for observatoin Assessment & Plan Final Impression: (1) Chest pain (2) Headache Depart Disposition: ADMITTED Home Meds Reported Medications Pantoprazole Sodium (PROTONIX) 40 Mg Suspdr.pkt, 40 MG PO DAILY, #30 TAB 12/26/19 Amlodipine Besylate (NORVASC) 10 Mg Tab, 10 MG PO DAILY, TAB 12/26/19 Aspirin (ASPIR 81) 81 Mg Tablet.dr, DAILY 12/26/19 Atorvastatin Calcium (LIPITOR) 20 Mg Tablet, 40 MG PO HS, #30 TAB 12/26/19 [place]-3 Fatty Acids (OMEGA-3) 1,000 Mg Capsule, 1 TAB PO DAILY 12/23/19 [alopurinol] No Conflict Check, 300 MG PO FISCAL ACCOUNTING CLERK 12/23/19 [atorvastin] No Conflict Check, 40 MG PO HS 12/23/19 [edarbi CLD] No Conflict Check, 40 MG PO DAILY 12/23/19 ELVIN CASTILLO DO Mar 19, 2020 19:50
--- OUTSIDE RECORDS SUMMARY | 2020-03-19 20:09 | XMS REPORT | Continuity of Care Document ---
Author Author [facility] t Organization [facility] Address [address] [place] [address] Phone Unavailable Care Team Providers Care Luggage Maker Name Role Phone MD Jamil SORTO PCP DAHU, S JIRIES Attphys Unavailable DAHU, S JIRIES Admphys Unavailable Payers Payer Name Policy Type Policy Number Effective Date Expiration Date S ource Problems Condition Name Condition Details Condition Category Status Onset Date Resolution Date Last Treatment Date Treating Clinician Comments Source Chest pain Problem Active [facility] Allergies, Adverse Reactions, Alerts Allergy Name Allergy Type Status Severity Reaction(s) Onset Date Inacti ve Date Treating Clinician Comments Source No Known Allergies DA Active U 2019-07-27 00:00:00 [facility] No Known Drug Intolerances DA Active U 2007-05-31 00:00:0 0 [facility] No Known Contrast Allergies DA Active U 2007-05-31 00:00: 00 [facility] No Known Drug Allergies DA Active U 2007-05-31 00:00:00 [facility] No Known Food Allergies DA Active U 2007-05-31 00:00:00 [facility] No Known Other Allergies DA Active U 2007-05-31 00:00:00 [facility] Social History Social Habit Start Date Stop Date Quantity Comments Source Sex Assigned At 1970 00:00:00 1970 00:00:00 Male [facility] Medications Ordered Medication Name Filled Medication Name Start Date Stop Da te Current Medication? Ordering Clinician Indication Dosage Frequency Signature (SIG) Comments Components Source Alopurinol Alopurinol Yes [address] [facility] Amlodipine Besylate (Norvasc) 10 Mg TAB Amlodipine Besylate (Norvasc) 10 Mg TAB Yes 10 Daily [facility] Aspirin (Aspir 81) 81 Mg TABLET. Aspirin (Aspir 81) 81 Mg TABLET. Yes Daily [facility] Atorvastatin Calcium (Lipitor) 20 Mg TABLET Atorvastat in Calcium (Lipitor) 20 Mg TABLET Yes 40 Bedtime [facility] Atorvastin Atorvastin Yes 40 Bedtime [facility] Edarbi Cld Edarbi Cld Yes 40 Daily [facility] Okarche-3 Fatty Acids (Okarche-3) 1,000 Mg CAPSULE Okarche-3 Fatty Acids (Okarche-3) 1,000 Mg CAPSULE Yes 1 Daily [facility] Pantoprazole Sodium (Protonix) 40 Mg SUSPDR.PKT Pantop razole Sodium (Protonix) 40 Mg SUSPDR.PKT Yes 40 Daily [facility] Amlodipine Besylate Amlodipine Besylate 2019-12-26 00:00:00 No 5 Bedtime [facility] Coplavix Coplavix 2019-12-26 00:00:00 No 75 Bedtime [facility] Isorbid Ap Isorbid Ap 2019-12-26 00:00:00 No 20 Kusum ly [facility] Metoprolol Succinate Metoprolol Succinate 2019-12-26 00:00:00 No 12.5 Twice A Day [facility] Metoprolol Tartrate Metoprolol Tartrate 2019-12-25 00:00:00 No 100 Every 12 Hours [facility] Vital Signs Vital Name Observation Time Observation Value Comments Source Body Temperature 2020-03-14 23:22:00 98.0 [degF] [facility] Weight 2020-03-14 23:02:00 173 [lb_av] [facility] BMI (Body Mass Index) 2020-03-14 23:02:00 27.9 kg/m2 [facility] Body Temperature 2019-12-26 16:00:00 97.8 [degF] [facility] Weight 2019-12-26 06:29:00 173.03 [lb_av] [facility] BMI (Body Mass Index) 2019-12-26 06:29:00 27.9 kg/m2 [facility] Procedures Procedure Date / Time Performed Performing Clinician Sourc e MEASURE OF CARDIAC SAMPL & PRESSURE, L HEART, PERC APPROACH 2019-12-26 00:00:00 [facility] FLUOROSCOPY OF MULT COR ART USING L OSM CONTRAST 2019-12-26 00:0 0:00 [facility] FLUOROSCOPY OF LEFT HEART USING LOW OSMOLAR CONTRAST 2019-12-26 00:00:00 [facility] Plan of Care Planned Activity Planned Date Details Comments Source Instructions Hypertension [facility] Encounters Start Date/Time End Date/Time Encounter Type Admission Type [facility] Care Department Encounter ID Source 2020-03-14 22:26:00 2020-03-14 23:30:00 Departed Emergency Room [facility] [id number] [facility] 2019-12-23 16:11:00 2019-12-26 18:07:00 Discharged Inpatient [address] [facility] [id number] [facility] 2019-10-27 17:11:00 2019-10-27 17:11:00 Emergency E [id number] 2018-12-28 16:24:00 2018-12-28 16:24:00 Emergency E [id number] 2018-12-15 23:16:00 2018-12-15 23:16:00 Emergency E [facility] 7502 [facility] Results Test Description Test Time Test Comments Results Result Comments Source Capillary blood glucose measurement by glucometer (mas s/volume) 2019-12-26 06:20:00 Test Item Bedside Glucose (test code = 90285-5) 75 70-120 Meter ID: [id number] [facility] (mass/volume)2019-12-26 06:20:00* Test Item Value Reference Range Interpretation Comments Bedside Glucose (test code = 79700-4) 75 70-120 Meter ID: [id number] [id number] 17:48:00 [facility] [address] [address] Patient Name : SRIRAM CONCEPCION MR #: [id number] : 1970 Age/Sex: 49/M Adm Physician : CARINA BLACK MD Admit Date : 12/23/19 Location : MED/SURG Room/Bed : [facility][note 3] REPORT: Myovi ew Stress Test DATE OF [...] post-stress tomographic imaging was performed. FINDINGS: The critical [facility] hospital quality of study is fair. Left ventricular [...] abnormalities. Courtney Mcconnell MD ABS/RUDI :5 3 /[id number] Signature Date Dictated By: COURTNEY MCCONNELL MD Transcribed By: SUZETTEL on 12/25/19 < Electronically signed by COURTNEY MCCONNELL MD><<Signature on File>>01/15/20 1040 COPY TO: Blood leukocytes automated count (number/volume)2019-12-25 04:55:00* Test Item Value Reference Range Interpretation Comments White Blood Count (test code = 6690-2) 10.86 4.8-10.8 [facility] automated count (number/volume)2019-12-25 04:55:00* Test Item Value Reference Range Interpretation Comments Red Blood Count (test code = 789-8) 5.40 4.3-5.7 [facility] hemoglobin measurement (moles/volume)2019-12-25 04:55:00* Test Item Value Reference Range Interpretation Comments Hemoglobin (test code = 01201-3) 15.5 14.0-18.0 [facility] HospitalAutomated blood hematocrit (volume fraction)2019-12-25 04:55:00* Test Item Value Reference Range Interpretation Comments Hematocrit (test code = 4544-3) 47.8 38.2-49.6 [facility] HospitalAutomated erythrocyte mean corpuscular bwguub7549-15-40 04:55:00* Test Item Value Reference Range Interpretation Comments Mean Corpuscular Volume (test code = 787-2) 88.5 81-99 [facility] HospitalAutomated erythrocyte mean corpuscular hemoglobin (mass per erythrocyte)2019-12-25 04:55:00* Test Item Value Reference Range Interpretation Comments Mean Corpuscular Hemoglobin (test code = 785-6) 28.7 28-32 [facility] HospitalAutomated erythrocyte mean corpuscular hemoglobin concentration measurement (mass/volume)2019-12-25 04:55:00* Test Item Value Reference Range Interpretation Comments Mean Corpuscular Hemoglobin Concent (test code = 786-4) 32.4 31-35 [facility] HospitalRDW EzwKt-Rjs3229-31-11 04:55:00* Test Item Value Reference Range Interpretation Comments Red Cell Distribution Width (test code = 68572-3) 13.4 11.7 -14.4 [facility] HospitalAutomated blood platelet count (count/volume)2019-12-25 04:55:00* Test Item Value Reference Range Interpretation Comments Platelet Count (test code = 777-3) 258 140-360 [facility] HospitalAutomated blood segmented neutrophil count as percentage of total bjbunqdgzb9363-00-08 04:55:00* Test Item Value Reference Range Interpretation Comments Neutrophils (%) (Auto) (test code = 85812-1) 54.3 38.7-80.0 [facility] HospitalAutomated blood lymphocyte count as percentage ot total nwozoijjqc5462-55-08 04:55:00* Test Item Value Reference Range Interpretation Comments Lymphocytes (%) (Auto) (test code = 736-9) 35.0 18.0-39.1 [facility] HospitalAutomated blood monocyte count as percentage of total bzgrhhamfz8394-76-24 04:55:00* Test Item Value Reference Range Interpretation Comments Monocytes (%) (Auto) (test code = 5905-5) 7.7 4.4-11.3 [facility] HospitalAutomated blood eosinophil count as percentage of total urjntlvqcf9426-81-75 04:55:00* Test Item Value Reference Range Interpretation Comments Eosinophils (%) (Auto) (test code = 713-8) 2.0 0.0-6.0 [facility] HospitalAutomated blood basophil count as percentage of total xsvzunetdz6518-76-74 04:55:00* Test Item Value Reference Range Interpretation Comments Basophils (%) (Auto) (test code = 706-2) 0.6 0.0-1.0 [facility] HospitalFluoroscopic procedure less than one hour ywtviimh6307-61-84 04:55:00* Test Item Value Reference Range Interpretation Comments IM GRANULOCYTES % (test code = IM GRANULOCYTES %) 0.4 0.0- 1.0 [facility] HospitalAutomated blood neutrophil count 2019-12-25 04:55:00* Test Item Value Reference Range Interpretation Comments Neutrophils # (Auto) (test code = 751-8) 5.9 2.1-6.9 [facility] HospitalBlood lymphocytes count (number/volume) 2019-12-25 04:55:00* Test Item Value Reference Range Interpretation Comments Lymphocytes # (Auto) (test code = 82450-9) 3.8 1.0-3.2 [facility] HospitalBlood monocytes automated count (number/volume)2019-12-25 04:55:00* Test Item Value Reference Range Interpretation Comments Monocytes # (Auto) (test code = 742-7) 0.8 0.2-0.8 [facility] HospitalAutomated blood eosinophil count 2019-12-25 04:55:00* Test Item Value Reference Range Interpretation Comments Eosinophils # (Auto) (test code = 711-2) 0.2 0.0-0.4 [facility] HospitalAutomated blood basophil count (count/volume)2019-12-25 04:55:00* Test Item Value Reference Range Interpretation Comments Basophils # (Auto) (test code = 704-7) 0.1 0.0-0.1 [facility] HospitalFluoroscopic procedure less than one hour izokurtj9076-89-70 04:55:00* Test Item Value Reference Range Interpretation Comments Absolute Immature Granulocyte (auto (timmy t code = Absolute Immature Granulocyte (auto) 0.04 0-0.1 [facility] sodium measurement (moles/volume)2019-12-25 04:55:00* Test Item Value Reference Range Interpretation Comments Sodium Level (test code = 2951-2) 140 136-145 [facility] potassium measurement (moles/volume)2019-12-25 04:55:00* Test Item Value Reference Range Interpretation Comments Potassium Level (test code = 2823-3) 3.3 3.5-5.1 [facility] chloride measurement (moles/volume)2019-12-25 04:55:00* Test Item Value Reference Range Interpretation Comments Chloride Level (test code = 2075-0) 104 98-107 [facility]ererum or plasma carbon dioxide, total measurement (moles/volume)2019-12-25 04:55:00* Test Item Value Reference Range Interpretation Comments Carbon Dioxide Level (test code = 2028-9) 28 22-29 [facility]ererum or plasma anion twf0507-88-05 04:55:00* Test Item Value Reference Range Interpretation Comments Anion Gap (test code = 82501-5) 11.3 8-16 [facility]ere[facility] urea nitrogen measurement (mass/volume)2019-12-25 04:55:00* Test Item Value Reference Range Interpretation Comments Blood Urea Nitrogen (test code = 3094-0) 16 7-26 [facility]ere[facility] plasma creatinine measurement (mass/volume)2019-12-25 04:55:00* Test Item Value Reference Range Interpretation Comments Creatinine (test code = 2160-0) 0.84 0.72-1.25 [facility]ererum or plasma urea nitrogen/creatinine mass cldte6981-28-10 04:55:00* Test Item Value Reference Range Interpretation Comments BUN/Creatinine Ratio (test code = 3097-3) 19 6-25 [facility] HospitalEstimated glomerular filtration rate (GFR) mkbfidhoypnyr8164-16-77 04:55:00* Test Item Value Reference Range Interpretation Comments Estimat Glomerular Filtration Rate (test code = 702159787) > 60 >60 Ranges were taken from the National Kidney Disease Education Program and the [facility] Kidney Foundation literature.Reference ranges:60 or greater: Psjryj87-25 ( for 3 consecutive months): Chronic kidney disease 15 or less: Kidney failureUT Southwestern William P. [facility]ments Jr. University HospitalGlucose fjibamrpibs5882-49-26 04:55:00* Test Item Value Reference Range Interpretation Comments Glucose Level (test code = OKN9035) 81 74-118 [facility]ere[facility] or plasma calcium measurement (mass/volume)2019-12-25 04:55:00* Test Item Value Reference Range Interpretation Comments Calcium Level (test code = 32787-5) 9.7 8.4-10.2 [facility] HospitalBlood leukocytes automated count (number/volume)2019-12-25 04:55:00* Test Item Value Reference Range Interpretation Comments White Blood Count (test code = 6690-2) 10.86 4.8-10.8 [facility] HospitalBlood erythrocytes automated count (number/volume)2019-12-25 04:55:00* Test Item Value Reference Range Interpretation Comments Red Blood Count (test code = 789-8) 5.40 4.3-5.7 [facility] HospitalBlood hemoglobin measurement (moles/volume)2019-12-25 04:55:00* Test Item Value Reference Range Interpretation Comments Hemoglobin (test code = 71410-2) 15.5 14.0-18.0 [facility] HospitalAutomated blood hematocrit (volume fraction)2019-12-25 04:55:00* Test Item Value Reference Range Interpretation Comments Hematocrit (test code = 4544-3) 47.8 38.2-49.6 [facility] HospitalAutomated erythrocyte mean corpuscular xpmvsn9469-14-19 04:55:00* Test Item Value Reference Range Interpretation Comments Mean Corpuscular Volume (test code = 787-2) 88.5 81-99 [facility] HospitalAutomated erythrocyte mean corpuscular hemoglobin (mass per erythrocyte)2019-12-25 04:55:00* Test Item Value Reference Range Interpretation Comments Mean Corpuscular Hemoglobin (test code = 785-6) 28.7 28-32 [facility] HospitalAutomated erythrocyte mean corpuscular hemoglobin concentration measurement (mass/volume)2019-12-25 04:55:00* Test Item Value Reference Range Interpretation Comments Mean Corpuscular Hemoglobin Concent (test code = 786-4) 32.4 31-35 [facility] HospitalRDW OvnFu-Llj3373-03-11 04:55:00* Test Item Value Reference Range Interpretation Comments Red Cell Distribution Width (test code = 42361-1) 13.4 11.7 -14.4 [facility] HospitalAutomated blood platelet count (count/volume)2019-12-25 04:55:00* Test Item Value Reference Range Interpretation Comments Platelet Count (test code = 777-3) 258 140-360 [facility] HospitalAutomated blood segmented neutrophil count as percentage of total nqhvhfvdft6699-75-79 04:55:00* Test Item Value Reference Range Interpretation Comments Neutrophils (%) (Auto) (test code = 01244-1) 54.3 38.7-80.0 [facility] HospitalAutomated blood lymphocyte count as percentage ot total wwvwqlisxj1439-50-38 04:55:00* Test Item Value Reference Range Interpretation Comments Lymphocytes (%) (Auto) (test code = 736-9) 35.0 18.0-39.1 [facility] HospitalAutomated blood monocyte count as percentage of total tfqwrjgzpb2215-75-88 04:55:00* Test Item Value Reference Range Interpretation Comments Monocytes (%) (Auto) (test code = 5905-5) 7.7 4.4-11.3 [facility] HospitalAutomated blood eosinophil count as percentage of total savmqdulya6268-26-44 04:55:00* Test Item Value Reference Range Interpretation Comments Eosinophils (%) (Auto) (test code = 713-8) 2.0 0.0-6.0 [facility] HospitalAutomated blood basophil count as percentage of total xgighilgkt7706-99-66 04:55:00* Test Item Value Reference Range Interpretation Comments Basophils (%) (Auto) (test code = 706-2) 0.6 0.0-1.0 [facility] HospitalFluoroscopic procedure less than one hour ncmmpwpv1921-68-36 04:55:00* Test Item Value Reference Range Interpretation Comments IM GRANULOCYTES % (test code = IM GRANULOCYTES %) 0.4 0.0- 1.0 [facility] HospitalAutomated blood neutrophil count 2019-12-25 04:55:00* Test Item Value Reference Range Interpretation Comments Neutrophils # (Auto) (test code = 751-8) 5.9 2.1-6.9 [facility] HospitalBlood lymphocytes count (number/volume) 2019-12-25 04:55:00* Test Item Value Reference Range Interpretation Comments Lymphocytes # (Auto) (test code = 52145-8) 3.8 1.0-3.2 [facility] HospitalBlood monocytes automated count (number/volume)2019-12-25 04:55:00* Test Item Value Reference Range Interpretation Comments Monocytes # (Auto) (test code = 742-7) 0.8 0.2-0.8 [facility] HospitalAutomated blood eosinophil count 2019-12-25 04:55:00* Test Item Value Reference Range Interpretation Comments Eosinophils # (Auto) (test code = 711-2) 0.2 0.0-0.4 [facility] HospitalAutomated blood basophil count (count/volume)2019-12-25 04:55:00* Test Item Value Reference Range Interpretation Comments Basophils # (Auto) (test code = 704-7) 0.1 0.0-0.1 [facility] HospitalFluoroscopic procedure less than one hour okuxphoa8190-06-19 04:55:00* Test Item Value Reference Range Interpretation Comments Absolute Immature Granulocyte (auto (timmy t code = Absolute Immature Granulocyte (auto) 0.04 0-0.1 [facility] sodium measurement (moles/volume)2019-12-25 04:55:00* Test Item Value Reference Range Interpretation Comments Sodium Level (test code = 2951-2) 140 136-145 [facility]ere[facility] or plasma potassium measurement (moles/volume)2019-12-25 04:55:00* Test Item Value Reference Range Interpretation Comments Potassium Level (test code = 2823-3) 3.3 3.5-5.1 [facility]ere[facility] chloride measurement (moles/volume)2019-12-25 04:55:00* Test Item Value Reference Range Interpretation Comments Chloride Level (test code = 2075-0) 104 98-107 [facility]ererum or plasma carbon dioxide, total measurement (moles/volume)2019-12-25 04:55:00* Test Item Value Reference Range Interpretation Comments Carbon Dioxide Level (test code = 2028-9) 28 22-29 [facility]ererum or plasma anion vol6827-07-72 04:55:00* Test Item Value Reference Range Interpretation Comments Anion Gap (test code = 29164-4) 11.3 8-16 [facility]ere[facility] plasma urea nitrogen measurement (mass/volume)2019-12-25 04:55:00* Test Item Value Reference Range Interpretation Comments Blood Urea Nitrogen (test code = 3094-0) 16 7-26 [facility]ererum or plasma creatinine measurement (mass/volume)2019-12-25 04:55:00* Test Item Value Reference Range Interpretation Comments Creatinine (test code = 2160-0) 0.84 0.72-1.25 [facility]ererum or plasma urea nitrogen/creatinine mass npvkq1737-80-24 04:55:00* Test Item Value Reference Range Interpretation Comments BUN/Creatinine Ratio (test code = 3097-3) 19 6-25 [facility] HospitalEstimated glomerular filtration rate (GFR) rkhoapvcgmcgg2191-33-36 04:55:00* Test Item Value Reference Range Interpretation Comments Estimat Glomerular Filtration Rate (test code = 827463282) > 60 >60 Ranges were taken from the National Kidney Disease Education Program and the [facility] Kidney Foundation literature.Reference ranges:60 or greater: Sednxh78-84 ( for 3 consecutive months): Chronic kidney disease 15 or less: Kidney failureUT Southwestern [facility]. [facility]ments [facility]. [facility] HospitalGlucose ghmaeyzjbww8071-79-94 04:55:00* Test Item Value Reference Range Interpretation Comments Glucose Level (test code = QEO1622) 81 74-118 [facility]ere[facility] or plasma calcium measurement (mass/volume)2019-12-25 04:55:00* Test Item Value Reference Range Interpretation Comments Calcium Level (test code = 88080-2) 9.7 8.4-10.2 [facility] HospitalFluoroscopic procedure less than one hour kbwibagu8657-21-21 08:23:00* Test Item Value Reference Range Interpretation Comments Hemoglobin A1c Percent (test code = Hemoglobin A1c Percent) 5.8 4.0-7.0 [facility] or plasma triglyceride measurement (mass/volume)2019-12-24 08:23:00* Test Item Value Reference Range Interpretation Comments Triglycerides Level (test code = 2571-8) 65 0-149 [facility]ererum or plasma cholesterol measurement (mass/volume)2019-12-24 08:23:00* Test Item Value Reference Range Interpretation Comments Cholesterol Level (test code = 2093-3) 101 0-199 Less than 200 mg/dL Low Drsv671 - 239 mg/dL Borderline Tufm947 m g/dl and greater High Risk [facility]ere[facility] or plasma cholesterol in LDL measurement (mass/volume) 2019-12-24 08:23:00* Test Item Value Reference Range Interpretation Comments LDL Cholesterol (test code = 2089-1) 45 60-130 [facility]ererum or plasma cholesterol in HDL measurement (mass/volume)2019-12-24 08:23:00* Test Item Value Reference Range Interpretation Comments HDL Cholesterol (test code = 2085-9) 43 40-60 [facility]ererum or plasma total cholesterol/cholesterol in HDL mass oadzk7015-17-67 08:23:00* Test Item Value Reference Range Interpretation Comments Cholesterol/HDL Ratio (test code = 9830-1) 2.3 3.9-4.7 [facility] or plasma creatine kinase measurement (enzymatic activity/volume)2019-12-24 08:23:00* Test Item Value Reference Range Interpretation Comments Creatine Kinase (test code = 2157-6) 33 30-200 [facility]ere[facility] or plasma creatine kinase MB measurement (mass/volume)2019-12-24 08:23:00* Test Item Value Reference Range Interpretation Comments Creatine Kinase MB (test code = 49205-9) 0.70 0-5.0 [facility] HospitalTroponin I measurement by highly sensitive enzyme nulmzakaava5365-69-50 08:23:00* Test Item Value Reference Range Interpretation Comments Troponin I (test code = 89771-6) < 0.001 0-0.300 [facility] HospitalFluoroscopic procedure less than one hour [id number] 08:23:00* Test Item Value Reference Range Interpretation Comments Hemoglobin A1c Percent (test code = Hemoglobin A1c Percent) 5.8 4.0-7.0 [facility] triglyceride measurement (mass/volume)2019-12-24 08:23:00* Test Item Value Reference Range Interpretation Comments Triglycerides Level (test code = 2571-8) 65 0-149 [facility] cholesterol measurement (mass/volume)2019-12-24 08:23:00* Test Item Value Reference Range Interpretation Comments Cholesterol Level (test code = 2093-3) 101 0-199 Less than 200 mg/dL Low Vtiy453 - 239 mg/dL Borderline Gmls840 m g/dl and greater High Risk [facility] cholesterol in LDL measurement (mass/volume) 2019-12-24 08:23:00* Test Item Value Reference Range Interpretation Comments LDL Cholesterol (test code = 2089-1) 45 60-130 [facility] cholesterol in HDL measurement (mass/volume)2019-12-24 08:23:00* Test Item Value Reference Range Interpretation Comments HDL Cholesterol (test code = 2085-9) 43 40-60 [facility] total cholesterol/cholesterol in HDL mass [id number] 08:23:00* Test Item Value Reference Range Interpretation Comments Cholesterol/HDL Ratio (test code = 9830-1) 2.3 3.9-4.7 [facility] creatine kinase measurement (enzymatic activity/volume)2019-12-24 08:23:00* Test Item Value Reference Range Interpretation Comments Creatine Kinase (test code = 2157-6) 33 30-200 [facility] creatine kinase MB measurement (mass/volume)2019-12-24 08:23:00* Test Item Value Reference Range Interpretation Comments Creatine Kinase MB (test code = 76294-7) 0.70 0-5.0 [facility] HospitalTrop[facility] I measurement by highly sensitive enzyme dgyjxphrvvi3800-79-73 08:23:00* Test Item Value Reference Range Interpretation Comments Troponin I (test code = 36959-4) < 0.001 0-0.300 [facility] HospitalCHEST SINGLE (PORTABLE)2019-12-23 16:14:00 [facility] [address] [address] Patient Name: SRIRAM CONCEPCION MR #: [id number] : 1970 Age/Sex: 49/M Req #: [id number] Adm Physician: Ordered by: JOSE BOSWELL MD Report #: [id number] Location: ER Room/Bed: Procedure: [id number] DX/CHEST SIN GLE (PORTABLE) Exam Date: 12/23/19 Exam Time: 1520 REPORT STATUS: Signed EXAMINATION : CHEST SINGLE (PORTABLE) INDICATION: [id number] 1520 COMPARISON: None FINDINGS: AP view Limited [...] 12/23/191613 COPY TO: JOSE BOSWELL MD BNP Mts-mZeu3058-43-09 15:54:00* Test Item Value Reference Range Interpretation Comments B-Type Natriuretic Peptide (test code = 76372-1) 34.1 0-100 [facility] HospitalBNP Dss-rOii7160-30-09 15:54:00* Test Item Value Reference Range Interpretation Comments B-Type Natriuretic Peptide (test code = 30410-4) 34.1 0-100 [facility] HospitalFluoroscopic procedure less than one hour mfvfdmkt7714-28-71 15:49:00* Test Item Value Reference Range Interpretation [...] to perform high complexity tests.Specimen sent to [facility] and testing performed by Clinical Pathology [address] [place] [address] [phone] Director: Emerson De Leon M.D.CLIA # [id number] [facility]Fluoroscopic procedure less than one hour oppyiqvi3993-83-46 15:49:00* Test Item Value Reference Range Interpretation [...] to perform high complexity tests.Specimen sent to [facility] and testing performed by Clinical Pathology [address] [place] [address] [phone] Director: Emerson De Leon M.D.CLIA # [id number] [facility] HospitalProthrombin time (PT) in platelet poor plasma by coagulation sgqrs5553-21-91 15:15:00* Test Item Value Reference Range Interpretation Comments Prothrombin Time (test code = 5902-2) 12.6 11.9-14.5 [facility] HospitalINR in Platelet poor plasma by Coagulation inrok8222-59-82 15:15:00* Test Item Value Reference Range Interpretation Comments Prothromb Time International Ratio (test code = 6301-6) 0.89 Oral Anticoagulant Therapy INR Values:1. Low Intensity Therapy 1.5 - 2.02 . Moderate Intensity Therapy 2.0 - 3.03. High Intensity Therapy(1) 2.5 - 3. 54. High Intensity Therapy(2) 3.0 - 4.05. Panic Value INR > 5.0 [facility] HospitalActivated partial thromboplastin time (aPTT) in platelet poor plasma by coagulation wrbyz2604-48-00 15:15:00* Test Item Value Reference Range Interpretation Comments Activated Partial Thromboplast Time (test code = 66809-7) 22.3 23.8-35.5 [facility] magnesium measurement (mass/volume)2019-12-23 15:15:00* Test Item Value Reference Range Interpretation Comments Magnesium Level (test code = 33258-5) 2.0 1.3-2.1 [facility] total bilirubin measurement (mass/volume)2019-12-23 15:15:00* Test Item Value Reference Range Interpretation Comments Total Bilirubin (test code = 1975-2) 0.8 0.2-1.2 [facility] HospitalFluoroscopic procedure less than one hour ftwqwxrt7311-69-21 15:15:00* Test Item Value Reference Range Interpretation Comments Aspartate Amino Transf (AST/SGOT) (test code = Aspartate Amino Transf (AST/SGOT)) 33 5-34 [facility] alanine aminotransferase measurement (enzymatic activity/volume)2019-12-23 15:15:00* Test Item Value Reference Range Interpretation Comments Alanine Aminotransferase (ALT/SGPT) (test code = 1742-6) 22 0-55 [facility] protein measurement (mass/volume)2019-12-23 15:15:00* Test Item Value Reference Range Interpretation Comments Total Protein (test code = 2885-2) 7.8 6.5-8.1 [facility] albumin measurement (mass/volume)2019-12-23 15:15:00* Test Item Value Reference Range Interpretation Comments Albumin (test code = 1751-7) 3.9 3.5-5.0 [facility] HospitalPlasma globulin measurement (mass/volume) 2019-12-23 15:15:00* Test Item Value Reference Range Interpretation Comments Globulin (test code = 31332-7) 3.9 2.3-3.5 [facility] albumin/globulin mass hhoar6919-06-65 15:15:00* Test Item Value Reference Range Interpretation Comments Albumin/Globulin Ratio (test code = 1759-0) 1.0 0.8-2.0 [facility] plasma alkaline phosphatase measurement (enzymatic activity/volume)2019-12-23 15:15:00* Test Item Value Reference Range Interpretation Comments Alkaline Phosphatase (test code = 6768-6) 66 40-150 [facility] HospitalProthrombin time (PT) in platelet poor plasma by coagulation ktqoo5754-17-79 15:15:00* Test Item Value Reference Range Interpretation Comments Prothrombin Time (test code = 5902-2) 12.6 11.9-14.5 [facility] HospitalINR in Platelet poor plasma by Coagulation eaxgn5277-52-58 15:15:00* Test Item Value Reference Range Interpretation Comments Prothromb Time International Ratio (test code = 6301-6) 0.89 Oral Anticoagulant Therapy INR Values:1. Low Intensity Therapy 1.5 - 2.02 . Moderate Intensity Therapy 2.0 - 3.03. High Intensity Therapy(1) 2.5 - 3. 54. High Intensity Therapy(2) 3.0 - 4.05. Panic Value INR > 5.0 [facility] HospitalActivated partial thromboplastin time (aPTT) in platelet poor plasma by coagulation cofoc2589-18-13 15:15:00* Test Item Value Reference Range Interpretation Comments Activated Partial Thromboplast Time (test code = 16589-0) 22.3 23.8-35.5 [facility] magnesium measurement (mass/volume)2019-12-23 15:15:00* Test Item Value Reference Range Interpretation Comments Magnesium Level (test code = 95693-4) 2.0 1.3-2.1 [facility] total bilirubin measurement (mass/volume)2019-12-23 15:15:00* Test Item Value Reference Range Interpretation Comments Total Bilirubin (test code = 1975-2) 0.8 0.2-1.2 [facility] HospitalFluoroscopic procedure less than one hour nmwgakff9241-38-94 15:15:00* Test Item Value Reference Range Interpretation Comments Aspartate Amino Transf (AST/SGOT) (test code = Aspartate Amino Transf (AST/SGOT)) 33 5-34 [facility] plasma alanine aminotransferase measurement (enzymatic activity/volume)2019-12-23 15:15:00* Test Item Value Reference Range Interpretation Comments Alanine Aminotransferase (ALT/SGPT) (test code = 1742-6) 22 0-55 [facility] protein measurement (mass/volume)2019-12-23 15:15:00* Test Item Value Reference Range Interpretation Comments Total Protein (test code = 2885-2) 7.8 6.5-8.1 [facility] albumin measurement (mass/volume)2019-12-23 15:15:00* Test Item Value Reference Range Interpretation Comments Albumin (test code = 1751-7) 3.9 3.5-5.0 [facility] HospitalPlasma globulin measurement (mass/volume) 2019-12-23 15:15:00* Test Item Value Reference Range Interpretation Comments Globulin (test code = 63756-4) 3.9 2.3-3.5 [facility] albumin/globulin mass ohlht9155-64-62 15:15:00* Test Item Value Reference Range Interpretation Comments Albumin/Globulin Ratio (test code = 1759-0) 1.0 0.8-2.0 [facility] alkaline phosphatase measurement (enzymatic activity/volume)2019-12-23 15:15:00* Test Item Value Reference Range Interpretation Comments Alkaline Phosphatase (test code = 6768-6) 66 40-150 [facility] HospitalCBC W/O [id number] 00:12:00* Test Item Value Reference Range Interpretation [...] MPV) 9.7 fL 6.7-11.0 N BASIC METABOLIC QPUDR1262-93-53 00:08:00* Test Item Value Reference Range Interpretation [...] code = CA) 9.6 mg/dL 8.5-10.1 N [id number]-[id number] 00:08:00* Test Item Value Reference Range Interpretation Comments TROPONIN-I (test code = TROPI) <0.015 ng/mL 0-0.045 N BASIC METABOLIC [id number] 23:57:00* Test Item Value Reference Range Interpretation [...] code = CA) 9.6 mg/dL 8.5-10.1 N [id number] 23:57:00* Test Item Value Reference Range Interpretation Comments TROPONIN-I (test code = TROPI) ng/mL 0-0.045 - XR CHEST 1 [id number] 23:32:00 FAX: Chelsea José DO [place]: [address]: REG Name: SRIRAM GIMENEZ [facility] : [birth year] Age/S: 49/M [address] [facility] Unit #: [id number] Loc: [place] [address] Phys: Chelsea José DO Acct: [id number] Dis Date: Status: REG ER PHONE #: [phone] Exam Date: 07/27/2019 2330 FAX #: [phone] Reason: CHEST PAIN EXAMS: CPT CODE: [id number] XR CHEST 1 V 11070 LOCATION: Q15 HISTOR Y: 49-year-old male who [...] Technologist: Ana Rosa Samuels Trnscrd Date/Time/By: 07/27/2019 (8563) : By: [email or web address] Orig Print D/T: S: 07/27/2019 (4959) PAGE 1 Signed Report
[2020-03-19 20:11] LABS: BASOPHILS # (AUTO) 0.1 (0.0-0.1); BASOPHILS % 0.4 % (0.0-1.0); EOSINOPHILS # (AUTO) 0.1 (0.0-0.4); EOSINOPHILS % 1.1 % (0.0-6.0); HEMATOCRIT 46.8 % (38.2-49.6); LYMPHOCYTES # (AUTO) 1.9 (1.0-3.2); LYMPHOCYTES % 17.2 % (18.0-39.1); MEAN CORPUSCULAR HEMOGLOBIN 28.5 pg (28-32); MEAN CORPUSCULAR HGB CONC 32.1 g/dL (31-35); MONOCYTES # (AUTO) 0.8 (0.2-0.8); MONOCYTES % 7.4 % (4.4-11.3); NEUTROPHILS # (AUTO) 8.3 (2.1-6.9); NEUTROPHILS % 73.5 % (38.7-80.0); PLATELET COUNT 267 x10e3/uL (140-360); RED BLOOD COUNT 5.26 x10e6/uL (4.3-5.7); RED CELL DISTRIBUTION WIDTH 13.3 % (11.7-14.4)
[2020-03-19] MEDS ORDERED: SODIUM CHLORIDE 0.9% 1000ML 1,000 ML IV ONE (20:15)
[2020-03-19 20:26] LABS: ALANINE AMINOTRANSFERASE 19 IU/L (0-55); ALBUMIN 3.7 g/dL (3.5-5.0); ALBUMIN/GLOBULIN RATIO 1.1 (0.8-2.0); ALKALINE PHOSPHATASE 84 IU/L (40-150); ANION GAP 10.3 mmol/L (8-16); BLOOD UREA NITROGEN 11 mg/dL (7-26); BUN/CREATININE RATIO 11 (6-25); CALCIUM 9.7 mg/dL (8.4-10.2); CARBON DIOXIDE 28 mmol/L (22-29); CHLORIDE 104 mmol/L (98-107); CREATINE KINASE 50 IU/L (30-200); CREATININE, SERUM 1.03 mg/dL (0.72-1.25); EST GLOMERULAR FILTRATION RATE > 60 ML/MIN (60-); GLUCOSE 106 mg/dL (74-118); POTASSIUM 4.3 mmol/L (3.5-5.1); SODIUM 138 mmol/L (136-145)
--- NOTE | 2020-03-19 20:53 | Diagnostic Imaging Report ---
EXAMINATION: CT scan of the chest without contrast. TECHNIQUE: Helical CT images of the chest were performed from the lung apices to the level of the adrenal glands. No intravenous contrast was administered Coronal and sagittal reformatted images were obtained. Dose modulation, iterative reconstruction, and/or weight based adjustment of the mA/kV was utilized to reduce the radiation dose to as low as reasonably achievable. COMPARISON: None. CLINICAL HISTORY:Back and head pain DISCUSSION: ABSENCE OF INTRAVENOUS CONTRAST DECREASES SENSITIVITY FOR DETECTION OF FOCAL LESIONS AND VASCULAR PATHOLOGY. LINES/TUBES: None. LUNGS AND AIRWAYS: Scattered pulmonary cysts, otherwise the lungs are clear. No pulmonary nodules, masses or consolidation. The airways are normal, without endobronchial lesions. PLEURA: No pneumothorax or pleural effusions. HEART AND MEDIASTINUM: The thyroid gland is normal. The heart and pericardium are within normal limits. LYMPH NODES: There is no mediastinal, hilar or axillary lymphadenopathy. ABDOMEN: Limited contrast-enhanced views of the upper abdomen show no abnormality within the visualized liver, spleen, pancreas, or kidneys. The adrenal glands are normal. BONES AND SOFT TISSUES: No acute bony abnormalities. IMPRESSION: No acute CT finding. Signed by: Dr. Juan Hdz M.D. on 03/19/2020 8:50 PM
--- NOTE | 2020-03-19 20:55 | Diagnostic Imaging Report ---
CT BRAIN WO HISTORY: Headache COMPARISON: None. TECHNIQUE: Noncontrast axial scans were obtained from skull base to the vertex. Coronal and sagittal reconstructions obtained from the axial data. One or more of the following dose reduction techniques were used: Automated exposure control, adjustment of the mA and/or kV according to patient size, and/or utilization of iterative reconstruction technique. DISCUSSION: Scalp/Skull: Unremarkable. Brain sulci: Mildly prominent. Ventricles: Mild compensatory dilatation. Extra-axial spaces: No masses or fluid collections. Mild carotid siphon calcification. Parenchyma: Incidental subcentimeter pineal cyst. Otherwise, no mass, hemorrhage, or large vascular territory acute infarct. Dural sinuses: No abnormal densities. Sellar/Suprasellar region: Intact. Skull base: Intact. Incidental findings: Partially imaged mild right maxillary sinus mucosal thickening. Small left frontal sinus retention cyst. IMPRESSION: 1. No acute intracranial abnormalities. 2. Mild generalized cerebral volume loss. Signed by: Dr. Tip Serna M.D. on 03/19/2020 8:52 PM
[2020-03-20] VITALS (8 sets, daily range): BP systolic 103–152; BP diastolic 82–92
[2020-03-20 00:26] LABS: CREATINE KINASE MB 0.7 ng/mL (0-5.0)
[2020-03-20] MEDS ORDERED: ONDANSETRON HCL INJ 2MG/ML 2ML 2 MG/ML VIAL IV PRN (00:45)
[2020-03-20] MEDS ORDERED: ASPIRIN 81 MG CHEW TAB PO ONE (00:45)
[2020-03-20] MEDS ORDERED: MORPHINE SULFATE INJ 4 MG/ML INJ 1ML IV PRN (01:00)
--- OUTSIDE RECORDS SUMMARY | 2020-03-20 01:08 | XMS REPORT | Continuity of Care Document ---
Author Author [facility] t Organization [facility] Address [address] [place] [address] Phone Unavailable Care Team Providers Care Car Ferry Captain Name Role Phone MD Jamil SORTO PCP ELVIN CASTILLO Attphys Unavailable DAHU, S JIJOAN Attphys Unavailable DAHU, S JIRIES Admphys Unavailable Payers Payer Name Policy Type Policy Number Effective Date Expiration Date S ource Problems Condition Name Condition Details Condition Category Status Onset Date Resolution Date Last Treatment Date Treating Clinician Comments Source Chest pain Problem Active [facility] Allergies, Adverse Reactions, Alerts Allergy Name Allergy Type Status Severity Reaction(s) Onset Date Inacti ve Date Treating Clinician Comments Source No Known Allergies DA Active U 2019-07-27 00:00:00 [facility] No Known Drug Intolerances DA Active U 2007-05-31 00:00:0 0 [facility] No Known Contrast Allergies DA Active U 2007-05-31 00:00: 00 [facility] No Known Drug Allergies DA Active U 2007-05-31 00:00:00 [facility] No Known Food Allergies DA Active U 2007-05-31 00:00:00 [facility] No Known Other Allergies DA Active U 2007-05-31 00:00:00 [facility] Social History Social Habit Start Date Stop Date Quantity Comments Source Sex Assigned At [birth year] 00:00:00 Male [facility] Medications Ordered Medication Name Filled Medication Name Start Date Stop Da te Current Medication? Ordering Clinician Indication Dosage Frequency Signature (SIG) Comments Components Source Alopurinol Alopurinol Yes 300 Card Checker [facility] Amlodipine Besylate (Norvasc) 10 Mg TAB Amlodipine Besylate (Norvasc) 10 Mg TAB Yes 10 Daily [facility] Aspirin (Aspir 81) 81 Mg TABLET. Aspirin (Aspir 81) 81 Mg TABLET. Yes Daily [facility] Atorvastatin Calcium (Lipitor) 20 Mg TABLET Atorvastat in Calcium (Lipitor) 20 Mg TABLET Yes 40 Bedtime [facility] Atorvastin Atorvastin Yes 40 Bedtime [facility] Edarbi Cld Edarbi Cld Yes 40 Daily [facility] Monroe-3 Fatty Acids (Monroe-3) 1,000 Mg CAPSULE Monroe-3 Fatty Acids (Monroe-3) 1,000 Mg CAPSULE Yes 1 Daily [facility] Pantoprazole Sodium (Protonix) 40 Mg SUSPDR.PKT Pantop razole Sodium (Protonix) 40 Mg SUSPDR.PKT Yes 40 Daily [facility] Amlodipine Besylate Amlodipine Besylate 2019-12-26 00:00:00 No 5 Bedtime [facility] Coplavix Coplavix 2019-12-26 00:00:00 No 75 Bedtime [facility] Isorbid Ap Isorbid Ap 2019-12-26 00:00:00 No 20 Kusum ly [facility] Metoprolol Succinate Metoprolol Succinate 2019-12-26 00:00:00 No 12.5 Twice A Day [facility] Metoprolol Tartrate Metoprolol Tartrate 2019-12-25 00:00:00 No 100 Every 12 Hours [facility] Vital Signs Vital Name Observation Time Observation Value Comments Source Body Temperature 2020-03-14 23:22:00 98.0 [degF] [facility] Weight 2020-03-14 23:02:00 173 [lb_av] [facility] BMI (Body Mass Index) 2020-03-14 23:02:00 27.9 kg/m2 [facility] Body Temperature 2019-12-26 16:00:00 97.8 [degF] [facility] Weight 2019-12-26 06:29:00 173.03 [lb_av] [facility] BMI (Body Mass Index) 2019-12-26 06:29:00 27.9 kg/m2 [facility] Procedures Procedure Date / Time Performed Performing Clinician Sourc e MEASURE OF CARDIAC SAMPL & PRESSURE, L HEART, PERC APPROACH 2019-12-26 00:00:00 [facility] FLUOROSCOPY OF MULT COR ART USING L OSM CONTRAST 2019-12-26 00:0 0:00 [facility] FLUOROSCOPY OF LEFT HEART USING LOW OSMOLAR CONTRAST 2019-12-26 00:00:00 [facility] Plan of Care Planned Activity Planned Date Details Comments Source Instructions Hypertension [facility] Encounters Start Date/Time End Date/Time Encounter Type Admission Type Attendi [facility] Facility Care Department Encounter ID Source 2020-03-14 22:26:00 2020-03-14 23:30:00 Departed Emergency Room [facility] [id number] [facility] dical [place] 2019-12-23 16:11:00 2019-12-26 18:07:00 Discharged Inpatient 1 CARINA BLACK [facility] [id number] [facility] 2019-10-27 17:11:00 2019-10-27 17:11:00 Emergency E [facility] [id number] 2018-12-28 16:24:00 2018-12-28 16:24:00 Emergency E [facility] 7503 [facility] 2018-12-15 23:16:00 2018-12-15 23:16:00 Emergency E [facility] 7502 [facility] Results Test Description Test Time Test Comments Results Result Comments Source CT BRAIN WO 2020-03-19 20:49:00 [place] [id number] [place] [address] Patient Name: SRIRAM ADAMS MR #: [id number] : 1970 Age/Sex: 49/M Req #: [id number] Adm Physician: Ordered by: ELVIN CASTILLO DO Report #: [id number] Location: ER Room/Bed: Procedure: [id number] CT/CT BRAIN WO Exam Date: Exam Time: REPORT STATUS: Signed CT BRAIN WO HISTORY: Headache COMPARISON: None. TECHNIQUE: Noncontrast axial scans were obtained from skull base to the vertex. Coronal and sagittal reconstructions obtained from the axial data. One or more of the following dose reduction techniques were used: Automated exposure control, adjustment of the mA and/or kV according to patient size, and/or utilization of iterative reconstruction technique. DISCUSSION: Scalp/Skull: Unremarkable. Brain sulci: Mildly prominent. Ventricles: Mild compensatory dilatation. Extra-axial spaces: No masses or fluid collections. Mild carotid siphon calcification. Parenchyma: Incidental subcentimeter pineal cyst. Otherwise, no mass, hemorrhage, or large vascular territory acute infarct. Dural sinuses: No abnormal densities. Sellar/Suprasellar region: Intact. Skull base: Intact. Incidental findings: Partially imaged mild right maxillary sinus mucosal thickening. Small left frontal sinus retention cyst. IMPRESSION: 1. No acute intracranial abnormalities. 2. Mild generalized cerebral volume loss. Signed by: Dr. Tip Serna M.D. on 03/19/2020 8:52 PM Dictated By: TIP SERNA MD 51 Transcribed By: CHAGO on 03/19/202051 COPY TO: ELVIN CASTILLO DO CT CHEST WO 2020-03-19 20:47:00 [place] [address] [place] [address] Patient Name: SRIRAM ADAMS MR #: [id number] : 1970 Age/Sex: 49/M Req #: [id number] Adm Physician: Ordered by: ELVIN CASTILLO DO Report #: [id number] Location: ER Room/Bed: Procedure: [id number] CT/CT CHEST WO Exam Date: Exam Time: REPORT STATUS: Signed EXAMINATION: CT scan of the chest without contrast. TECHNIQUE: Helical CT images of the chest were performed from the lung apices to the level of the adrenal glands. No intravenous contrast was administered Coronal and sagittal reformatted images were obtained. Dose modulation, iterative reconstruction, and/or weight based adjustment of the mA/kV was utilized to reduce the radiation dose to as low as reasonably achievable. COMPARISON: None. CLINICAL HISTORY:Back and head pain DISCUSSION: ABSENCE OF INTRAVENOUS CONTRAST DECREASES SENSITIVITY FOR DETECTION OF FOCAL LESIONS AND VASCULAR PATHOLOGY. LINES/TUBES: None. LUNGS AND AIRWAYS: Scattered pulmonary cysts, otherwise the lungs are clear. No pulmonary nodules, masses or consolidation. The airways are normal, without endobronchial lesions. PLEURA: No pneumothorax or pleural effusions. HEART AND MEDIASTINUM: The thyroid gland is normal. The heart and pericardium are within normal limits. LYMPH NODES: There is no mediastinal, hilar or axillary lymphadenopathy. ABDOMEN: Limited contrast-enhanced views of the upper abdomen show no abnormality within the visualized liver, spleen, pancreas, or kidneys. The adrenal glands are normal. BONES AND SOFT TISSUES: No acute bony abnormalities. IMPRESSION: No acute CT finding. Signed by: Dr. Jama Raphael M.D. on 03/19/2020 8:50 PM Dictated By: JAMA RAPHAEL MD 49 Transcribed By: CHAGO on 03/19/202049 COPY TO: ELVIN CASTILLO DO Capillary blood glucose measurement by glucometer (mas s/volume) 2019-12-26 06:20:00 Test Item Bedside Glucose (test code = 65746-9) 75 70-120 Meter ID: [id number] [facility] by glucom[facility] (mass/volume)2019-12-26 06:20:00* Test Item Value Reference Range Interpretation Comments Bedside Glucose (test code = 76441-5) 75 70-120 M[address] ID: [id number] [facility] OHXZ4723-04-29 17:48:00 [facility] [address] [place] [address] Patient Name : SRIRAM CONCEPCION MR #: [id number] : 1970 Age/Sex: 49/M Adm Physician : CARINA BLACK MD Admit Date : 12/23/19 Location : MED/SURG2 [facility] REPORT: Myovi ew Stress Test DATE OF [...] post-stress tomographic imaging was performed. FINDINGS: The [facility] quality of study is fair. Left ventricular [...] abnormalities. Courtney Mcconnell MD ABS/RUDI :5 3 /[id number] Signature Date Dictated By: COURTNEY MCCONNELL MD Transcribed By: MODL on 12/25/19 < Electronically signed by COURTNEY MCCONNELL MD><<Signature on File>>01/15/20 1040 COPY TO: Blood leukocytes automated count (number/volume)2019-12-25 04:55:00* Test Item Value Reference Range Interpretation Comments White Blood Count (test code = 6690-2) 10.86 4.8-10.8 [facility] erythrocytes automated count (number/volume)2019-12-25 04:55:00* Test Item Value Reference Range Interpretation Comments Red Blood Count (test code = 789-8) 5.40 4.3-5.7 [facility] hemoglobin measurement (moles/volume)2019-12-25 04:55:00* Test Item Value Reference Range Interpretation Comments Hemoglobin (test code = 68576-7) 15.5 14.0-18.0 [facility] blood hematocrit (volume fraction)2019-12-25 04:55:00* Test Item Value Reference Range Interpretation Comments Hematocrit (test code = 4544-3) 47.8 38.2-49.6 [facility] erythrocyte mean corpuscular cfyvhb4868-51-49 04:55:00* Test Item Value Reference Range Interpretation Comments Mean Corpuscular Volume (test code = 787-2) 88.5 81-99 [facility] erythrocyte mean corpuscular hemoglobin (mass per erythrocyte)2019-12-25 04:55:00* Test Item Value Reference Range Interpretation Comments Mean Corpuscular Hemoglobin (test code = 785-6) 28.7 28-32 [facility]ed erythrocyte mean corpuscular hemoglobin concentration measurement (mass/volume)2019-12-25 04:55:00* Test Item Value Reference Range Interpretation Comments Mean Corpuscular Hemoglobin Concent (test code = 786-4) 32.4 31-35 [facility] SouthRDW LfvBv-Nns3113-42-11 04:55:00* Test Item Value Reference Range Interpretation Comments Red Cell Distribution Width (test code = 30786-5) 13.4 11.7 -14.4 [facility]ed blood platelet count (count/volume)2019-12-25 04:55:00* Test Item Value Reference Range Interpretation Comments Platelet Count (test code = 777-3) 258 140-360 [facility] SouthAutom[facility] blood segmented neutrophil count as percentage of total umlmbrmupi6669-91-72 04:55:00* Test Item Value Reference Range Interpretation Comments Neutrophils (%) (Auto) (test code = 75184-3) 54.3 38.7-80.0 [facility] South[facility] blood lymphocyte count as percentage ot total nfqlwvjxpa5997-35-10 04:55:00* Test Item Value Reference Range Interpretation Comments Lymphocytes (%) (Auto) (test code = 736-9) 35.0 18.0-39.1 [facility] South[facility] blood monocyte count as percentage of total oeuphpekjh3264-90-48 04:55:00* Test Item Value Reference Range Interpretation Comments Monocytes (%) (Auto) (test code = 5905-5) 7.7 4.4-11.3 [facility] blood eosinophil count as percentage of total xwytueoxbu9460-94-63 04:55:00* Test Item Value Reference Range Interpretation Comments Eosinophils (%) (Auto) (test code = 713-8) 2.0 0.0-6.0 [facility] blood basophil count as percentage of total xunnkcssep5524-51-29 04:55:00* Test Item Value Reference Range Interpretation Comments Basophils (%) (Auto) (test code = 706-2) 0.6 0.0-1.0 [facility] SouthFluoroscopic procedure less than one hour wwxrvijt2045-44-42 04:55:00* Test Item Value Reference Range Interpretation Comments IM GRANULOCYTES % (test code = IM GRANULOCYTES %) 0.4 0.0- 1.0 [facility] blood neutrophil count 2019-12-25 04:55:00* Test Item Value Reference Range Interpretation Comments Neutrophils # (Auto) (test code = 751-8) 5.9 2.1-6.9 [facility] lymphocytes count (number/volume) 2019-12-25 04:55:00* Test Item Value Reference Range Interpretation Comments Lymphocytes # (Auto) (test code = 53973-2) 3.8 1.0-3.2 [facility] monocytes automated count (number/volume)2019-12-25 04:55:00* Test Item Value Reference Range Interpretation Comments Monocytes # (Auto) (test code = 742-7) 0.8 0.2-0.8 [facility] blood eosinophil count 2019-12-25 04:55:00* Test Item Value Reference Range Interpretation Comments Eosinophils # (Auto) (test code = 711-2) 0.2 0.0-0.[address] [facility] basophil count (count/volume)2019-12-25 04:55:00* Test Item Value Reference Range Interpretation Comments Basophils # (Auto) (test code = 704-7) 0.1 0.0-0.1 [facility] SouthFluoroscopic procedure less than one hour exgaccwi3977-06-67 04:55:00* Test Item Value Reference Range Interpretation Comments Absolute Immature Granulocyte (auto (timmy t code = Absolute Immature Granulocyte (auto) 0.04 0-0.1 [facility] sodium measurement (moles/volume)2019-12-25 04:55:00* Test Item Value Reference Range Interpretation Comments Sodium Level (test code = 2951-2) 140 136-145 [facility] plasma potassium measurement (moles/volume)2019-12-25 04:55:00* Test Item Value Reference Range Interpretation Comments Potassium Level (test code = 2823-3) 3.3 3.5-5.1 [facility] plasma chloride measurement (moles/volume)2019-12-25 04:55:00* Test Item Value Reference Range Interpretation Comments Chloride Level (test code = 2075-0) 104 98-107 [facility]ererum or plasma carbon dioxide, total measurement (moles/volume)2019-12-25 04:55:00* Test Item Value Reference Range Interpretation Comments Carbon Dioxide Level (test code = 2028-9) 28 22-29 [facility]ererum or plasma anion cta9186-06-88 04:55:00* Test Item Value Reference Range Interpretation Comments Anion Gap (test code = 26926-5) 11.3 8-16 [facility] or plasma urea nitrogen measurement (mass/volume)2019-12-25 04:55:00* Test Item Value Reference Range Interpretation Comments Blood Urea Nitrogen (test code = 3094-0) 16 7-26 [facility]ererum or plasma creatinine measurement (mass/volume)2019-12-25 04:55:00* Test Item Value Reference Range Interpretation Comments Creatinine (test code = 2160-0) 0.84 0.72-1.25 [facility]ererum or plasma urea nitrogen/creatinine mass jxnya6639-17-89 04:55:00* Test Item Value Reference Range Interpretation Comments BUN/Creatinine Ratio (test code = 3097-3) 19 6-25 [facility] SouthEstimated glomerular filtration rate (GFR) lnumbqysbiovh3658-08-40 04:55:00* Test Item Value Reference Range Interpretation Comments Estimat Glomerular Filtration Rate (test code = 093729366) > 60 >60 Ranges were taken from the National Kidney Disease Education Program and the [facility] [employer] literature.Reference ranges:60 or greater: Lcdzoh25-99 ( for 3 consecutive months): Chronic kidney disease 15 or less: Kidney failureCHRISTUS [facility] – SouthGlucose qpctywzlnxv3184-68-08 04:55:00* Test Item Value Reference Range Interpretation Comments Glucose Level (test code = QCL3602) 81 74-118 [facility]ererum or plasma calcium measurement (mass/volume)2019-12-25 04:55:00* Test Item Value Reference Range Interpretation Comments Calcium Level (test code = 11110-9) 9.7 8.4-10.2 [facility] leukocytes automated count (number/volume)2019-12-25 04:55:00* Test Item Value Reference Range Interpretation Comments White Blood Count (test code = 6690-2) 10.86 4.8-10.8 [facility] SouthBlood erythrocytes automated count (number/volume)2019-12-25 04:55:00* Test Item Value Reference Range Interpretation Comments Red Blood Count (test code = 789-8) 5.40 4.3-5.7 [facility] SouthBlood hemoglobin measurement (moles/volume)2019-12-25 04:55:00* Test Item Value Reference Range Interpretation Comments Hemoglobin (test code = 85072-7) 15.5 14.0-18.0 [facility] SouthAutomated blood hematocrit (volume fraction)2019-12-25 04:55:00* Test Item Value Reference Range Interpretation Comments Hematocrit (test code = 4544-3) 47.8 38.2-49.6 [facility] SouthAutomated erythrocyte mean corpuscular kbpgdt1045-04-34 04:55:00* Test Item Value Reference Range Interpretation Comments Mean Corpuscular Volume (test code = 787-2) 88.5 81-99 [facility] SouthAutomated erythrocyte mean corpuscular hemoglobin (mass per erythrocyte)2019-12-25 04:55:00* Test Item Value Reference Range Interpretation Comments Mean Corpuscular Hemoglobin (test code = 785-6) 28.7 28-32 [facility] SouthAutomated erythrocyte mean corpuscular hemoglobin concentration measurement (mass/volume)2019-12-25 04:55:00* Test Item Value Reference Range Interpretation Comments Mean Corpuscular Hemoglobin Concent (test code = 786-4) 32.4 31-35 [facility] SouthRDW DivXm-Xwn5231-38-11 04:55:00* Test Item Value Reference Range Interpretation Comments Red Cell Distribution Width (test code = 73938-4) 13.4 11.7 -14.4 [facility] SouthAutomated blood platelet count (count/volume)2019-12-25 04:55:00* Test Item Value Reference Range Interpretation Comments Platelet Count (test code = 777-3) 258 140-360 [facility]Authigh[facility] hospitaled blood segmented neutrophil count as percentage of total whrymzghpg0281-75-43 04:55:00* Test Item Value Reference Range Interpretation Comments Neutrophils (%) (Auto) (test code = 91144-4) 54.3 38.7-80.0 [facility] SouthAutomated blood lymphocyte count as percentage ot total fumbvbptgf3321-23-77 04:55:00* Test Item Value Reference Range Interpretation Comments Lymphocytes (%) (Auto) (test code = 736-9) 35.0 18.0-39.1 [facility] SouthAutomated blood monocyte count as percentage of total cejdxvqise8311-30-53 04:55:00* Test Item Value Reference Range Interpretation Comments Monocytes (%) (Auto) (test code = 5905-5) 7.7 4.4-11.3 [facility] SouthAutomated blood eosinophil count as percentage of total iswqxdjcnz9913-96-74 04:55:00* Test Item Value Reference Range Interpretation Comments Eosinophils (%) (Auto) (test code = 713-8) 2.0 0.0-6.0 [facility] SouthAutomated blood basophil count as percentage of total ljuyrixtkr1662-49-53 04:55:00* Test Item Value Reference Range Interpretation Comments Basophils (%) (Auto) (test code = 706-2) 0.6 0.0-1.0 [facility] SouthFluoroscopic procedure less than one hour xcyghhgn0170-88-51 04:55:00* Test Item Value Reference Range Interpretation Comments IM GRANULOCYTES % (test code = IM GRANULOCYTES %) 0.4 0.0- 1.0 [facility] SouthAutom[facility] blood neutrophil count 2019-12-25 04:55:00* Test Item Value Reference Range Interpretation Comments Neutrophils # (Auto) (test code = 751-8) 5.9 2.1-6.9 [facility]Blood lymphocytes count (number/volume) 2019-12-25 04:55:00* Test Item Value Reference Range Interpretation Comments Lymphocytes # (Auto) (test code = 52754-1) 3.8 1.0-3.2 [facility] monocytes automated count (number/volume)2019-12-25 04:55:00* Test Item Value Reference Range Interpretation Comments Monocytes # (Auto) (test code = 742-7) 0.8 0.2-0.8 [facility]Autom[facility] blood eosinophil count 2019-12-25 04:55:00* Test Item Value Reference Range Interpretation Comments Eosinophils # (Auto) (test code = 711-2) 0.2 0.0-0.4 [facility] SouthAutomated blood basophil count (count/volume)2019-12-25 04:55:00* Test Item Value Reference Range Interpretation Comments Basophils # (Auto) (test code = 704-7) 0.1 0.0-0.1 [facility] SouthFluoroscopic procedure less than one hour ptnxysan8699-75-36 04:55:00* Test Item Value Reference Range Interpretation Comments Absolute Immature Granulocyte (auto (timmy t code = Absolute Immature Granulocyte (auto) 0.04 0-0.1 [facility] or plasma sodium measurement (moles/volume)2019-12-25 04:55:00* Test Item Value Reference Range Interpretation Comments Sodium Level (test code = 2951-2) 140 136-145 [facility]ere[facility] or plasma potassium measurement (moles/volume)2019-12-25 04:55:00* Test Item Value Reference Range Interpretation Comments Potassium Level (test code = 2823-3) 3.3 3.5-5.1 [facility]ere[facility] or plasma chloride measurement (moles/volume)2019-12-25 04:55:00* Test Item Value Reference Range Interpretation Comments Chloride Level (test code = 2075-0) 104 98-107 [facility]ererum or plasma carbon dioxide, total measurement (moles/volume)2019-12-25 04:55:00* Test Item Value Reference Range Interpretation Comments Carbon Dioxide Level (test code = 2028-9) 28 22-29 [facility]ere[facility] or plasma anion alc3906-21-44 04:55:00* Test Item Value Reference Range Interpretation Comments Anion Gap (test code = 70997-6) 11.3 8-16 [facility] plasma urea nitrogen measurement (mass/volume)2019-12-25 04:55:00* Test Item Value Reference Range Interpretation Comments Blood Urea Nitrogen (test code = 3094-0) 16 7-26 [facility]ere[facility] or plasma creatinine measurement (mass/volume)2019-12-25 04:55:00* Test Item Value Reference Range Interpretation Comments Creatinine (test code = 2160-0) 0.84 0.72-1.25 [facility] plasma urea nitrogen/creatinine mass hbivz6260-94-82 04:55:00* Test Item Value Reference Range Interpretation Comments BUN/Creatinine Ratio (test code = 3097-3) 19 6-25 [facility] SouthEstimated glomerular filtration rate (GFR) gdtvlyhbcdgui1193-11-58 04:55:00* Test Item Value Reference Range Interpretation Comments Estimat Glomerular Filtration Rate (test code = 473155390) > 60 >60 Ranges were taken from the National Kidney Disease Education Program and the [employer] literature.Reference ranges:60 or greater: Lsjsvl94-76 ( for 3 consecutive months): Chronic kidney disease 15 or less: Kidney failureCH[facility] – SouthGlucose udieevsrxhe9195-02-91 04:55:00* Test Item Value Reference Range Interpretation Comments Glucose Level (test code = DQT7378) 81 74-118 [facility] calcium measurement (mass/volume)2019-12-25 04:55:00* Test Item Value Reference Range Interpretation Comments Calcium Level (test code = 16050-1) 9.7 8.4-10.2 [facility] SouthFluoroscopic procedure less than one hour rhsqzjer1493-68-28 08:23:00* Test Item Value Reference Range Interpretation Comments Hemoglobin A1c Percent (test code = Hemoglobin A1c Percent) 5.8 4.0-7.0 [facility] plasma triglyceride measurement (mass/volume)2019-12-24 08:23:00* Test Item Value Reference Range Interpretation Comments Triglycerides Level (test code = 2571-8) 65 0-149 [facility] plasma cholesterol measurement (mass/volume)2019-12-24 08:23:00* Test Item Value Reference Range Interpretation Comments Cholesterol Level (test code = 2093-3) 101 0-199 Less than 200 mg/dL Low Qtuq776 - 239 mg/dL Borderline Dued941 m g/dl and greater High Risk [facility] plasma cholesterol in LDL measurement (mass/volume) 2019-12-24 08:23:00* Test Item Value Reference Range Interpretation Comments LDL Cholesterol (test code = 2089-1) 45 60-130 [facility] plasma cholesterol in HDL measurement (mass/volume)2019-12-24 08:23:00* Test Item Value Reference Range Interpretation Comments HDL Cholesterol (test code = 2085-9) 43 40-60 [facility] plasma total cholesterol/cholesterol in HDL mass knwoo5958-25-66 08:23:00* Test Item Value Reference Range Interpretation Comments Cholesterol/HDL Ratio (test code = 9830-1) 2.3 3.9-4.7 [facility] plasma creatine kinase measurement (enzymatic activity/volume)2019-12-24 08:23:00* Test Item Value Reference Range Interpretation Comments Creatine Kinase (test code = 2157-6) 33 30-200 [facility] or plasma creatine kinase MB measurement (mass/volume)2019-12-24 08:23:00* Test Item Value Reference Range Interpretation Comments Creatine Kinase MB (test code = 76390-0) 0.70 0-5.0 [facility] SouthTroponin I measurement by highly sensitive enzyme carvnqesdbl3341-62-15 08:23:00* Test Item Value Reference Range Interpretation Comments Troponin I (test code = 95908-8) < 0.001 0-0.300 [facility] SouthFluoroscopic procedure less than one hour tmhzmvsf0695-90-76 08:23:00* Test Item Value Reference Range Interpretation Comments Hemoglobin A1c Percent (test code = Hemoglobin A1c Percent) 5.8 4.0-7.0 [facility] plasma triglyceride measurement (mass/volume)2019-12-24 08:23:00* Test Item Value Reference Range Interpretation Comments Triglycerides Level (test code = 2571-8) 65 0-149 [facility] plasma cholesterol measurement (mass/volume)2019-12-24 08:23:00* Test Item Value Reference Range Interpretation Comments Cholesterol Level (test code = 2093-3) 101 0-199 Less than 200 mg/dL Low Izcp790 - 239 mg/dL Borderline Oamc663 m g/dl and greater High Risk [facility] or plasma cholesterol in LDL measurement (mass/volume) 2019-12-24 08:23:00* Test Item Value Reference Range Interpretation Comments LDL Cholesterol (test code = 2089-1) 45 60-130 [facility] or plasma cholesterol in HDL measurement (mass/volume)2019-12-24 08:23:00* Test Item Value Reference Range Interpretation Comments HDL Cholesterol (test code = 2085-9) 43 40-60 [facility] or plasma total cholesterol/cholesterol in HDL mass shykr9069-08-47 08:23:00* Test Item Value Reference Range Interpretation Comments Cholesterol/HDL Ratio (test code = 9830-1) 2.3 3.9-4.7 [facility] plasma creatine kinase measurement (enzymatic activity/volume)2019-12-24 08:23:00* Test Item Value Reference Range Interpretation Comments Creatine Kinase (test code = 2157-6) 33 30-200 [facility] or plasma creatine kinase MB measurement (mass/volume)2019-12-24 08:23:00* Test Item Value Reference Range Interpretation Comments Creatine Kinase MB (test code = 73503-5) 0.70 0-5.0 [facility] SouthTroponin I measurement by highly sensitive enzyme uuzaarnkpem8606-99-75 08:23:00* Test Item Value Reference Range Interpretation Comments Troponin I (test code = 86966-6) < 0.001 0-0.300 [facility] SouthCHEST SINGLE (PORTABLE)2019-12-23 16:14:00 [facility] [address] [place] [address] Patient Name: SRIRAM CONCEPCION MR #: [id number] : 1970 Age/Sex: 49/M Req #: [id number] Adm Physician: Ordered by: JOSE BOSWELL MD Report #: [id number] Location: ER Room/Bed: Procedure: [id number] DX/CHEST SIN GLE (PORTABLE) Exam Date: 12/23/19 Exam Time: 1520 REPORT STATUS: Signed EXAMINATION : CHEST SINGLE (PORTABLE) INDICATION: [id number] COMPARISON: None FINDINGS: AP view Limited [...] 12/23/191613 COPY TO: JOSE BOSWELL MD BNP Lbs-pStu1712-48-09 15:54:00* Test Item Value Reference Range Interpretation Comments B-Type Natriuretic Peptide (test code = 80847-2) 34.1 0-100 [facility] SouthBNP Slj-qXjb8901-64-09 15:54:00* Test Item Value Reference Range Interpretation Comments B-Type Natriuretic Peptide (test code = 25697-3) 34.1 0-100 [facility] SouthFluoroscopic procedure less than one hour txwcpbvq7042-68-35 15:49:00* Test Item Value Reference Range Interpretation [...] to perform high complexity tests.Specimen sent to [facility] and testing performed by Clinical Pathology [address] [place] [address] [phone] Director: Emerson De Leon M.D.CLIA # [id number] [facility]Flu[facility] less than one hour njnjjevx0243-96-39 15:49:00* Test Item Value Reference Range Interpretation [...] to perform high complexity tests.Specimen sent to [facility] and testing performed by Clinical Pathology [address] [place] [address] [phone] Director: Emerson De Leon M.D.CLIA # [id number] Spohn [facility]i – SouthProthrombin time (PT) in platelet poor plasma by coagulation rliub4726-64-00 15:15:00* Test Item Value Reference Range Interpretation Comments Prothrombin Time (test code = 5902-2) 12.6 11.9-14.5 [facility] SouthINR in Platelet poor plasma by Coagulation jgolw3517-71-90 15:15:00* Test Item Value Reference Range Interpretation Comments Prothromb Time International Ratio (test code = 6301-6) 0.89 Oral Anticoagulant Therapy INR Values:1. Low Intensity Therapy 1.5 - 2.02 . Moderate Intensity Therapy 2.0 - 3.03. High Intensity Therapy(1) 2.5 - 3. 54. High Intensity Therapy(2) 3.0 - 4.05. Panic Value INR > 5.0 [facility] SouthActivated partial thromboplastin time (aPTT) in platelet poor plasma by coagulation tfbqe8075-18-45 15:15:00* Test Item Value Reference Range Interpretation Comments Activated Partial Thromboplast Time (test code = 32478-0) 22.3 23.8-35.5 [facility] magnesium measurement (mass/volume)2019-12-23 15:15:00* Test Item Value Reference Range Interpretation Comments Magnesium Level (test code = 44369-4) 2.0 1.3-2.1 [facility] plasma total bilirubin measurement (mass/volume)2019-12-23 15:15:00* Test Item Value Reference Range Interpretation Comments Total Bilirubin (test code = 1975-2) 0.8 0.2-1.2 [facility] SouthFluoroscopic procedure less than one hour ejuposkh8851-97-82 15:15:00* Test Item Value Reference Range Interpretation Comments Aspartate Amino Transf (AST/SGOT) (test code = Aspartate Amino Transf (AST/SGOT)) 33 5-34 [facility] plasma alanine aminotransferase measurement (enzymatic activity/volume)2019-12-23 15:15:00* Test Item Value Reference Range Interpretation Comments Alanine Aminotransferase (ALT/SGPT) (test code = 1742-6) 22 0-55 [facility] or plasma protein measurement (mass/volume)2019-12-23 15:15:00* Test Item Value Reference Range Interpretation Comments Total Protein (test code = 2885-2) 7.8 6.5-8.1 [facility] plasma albumin measurement (mass/volume)2019-12-23 15:15:00* Test Item Value Reference Range Interpretation Comments Albumin (test code = 1751-7) 3.9 3.5-5.0 [facility] SouthPlasma globulin measurement (mass/volume) 2019-12-23 15:15:00* Test Item Value Reference Range Interpretation Comments Globulin (test code = 49000-0) 3.9 2.3-3.5 [facility] or plasma albumin/globulin mass orxuk7020-95-53 15:15:00* Test Item Value Reference Range Interpretation Comments Albumin/Globulin Ratio (test code = 1759-0) 1.0 0.8-2.0 [facility] or plasma alkaline phosphatase measurement (enzymatic activity/volume)2019-12-23 15:15:00* Test Item Value Reference Range Interpretation Comments Alkaline Phosphatase (test code = 6768-6) 66 40-150 [facility] SouthProthrombin time (PT) in platelet poor plasma by coagulation ncxnj9079-30-73 15:15:00* Test Item Value Reference Range Interpretation Comments Prothrombin Time (test code = 5902-2) 12.6 11.9-14.5 [facility] SouthINR in Platelet poor plasma by Coagulation bfnhd5828-09-22 15:15:00* Test Item Value Reference Range Interpretation Comments Prothromb Time International Ratio (test code = 6301-6) 0.89 Oral Anticoagulant Therapy INR Values:1. Low Intensity Therapy 1.5 - 2.02 . Moderate Intensity Therapy 2.0 - 3.03. High Intensity Therapy(1) 2.5 - 3. 54. High Intensity Therapy(2) 3.0 - 4.05. Panic Value INR > 5.0 [facility] SouthActivated partial thromboplastin time (aPTT) in platelet poor plasma by coagulation xsmej4154-05-18 15:15:00* Test Item Value Reference Range Interpretation Comments Activated Partial Thromboplast Time (test code = 75151-2) 22.3 23.8-35.5 [facility] plasma magnesium measurement (mass/volume)2019-12-23 15:15:00* Test Item Value Reference Range Interpretation Comments Magnesium Level (test code = 83741-1) 2.0 1.3-2.1 [facility] plasma total bilirubin measurement (mass/volume)2019-12-23 15:15:00* Test Item Value Reference Range Interpretation Comments Total Bilirubin (test code = 1975-2) 0.8 0.2-1.2 [facility] SouthFluoroscopic procedure less than one hour asawbmvb6054-39-85 15:15:00* Test Item Value Reference Range Interpretation Comments Aspartate Amino Transf (AST/SGOT) (test code = Aspartate Amino Transf (AST/SGOT)) 33 5-34 [facility] or plasma alanine aminotransferase measurement (enzymatic activity/volume)2019-12-23 15:15:00* Test Item Value Reference Range Interpretation Comments Alanine Aminotransferase (ALT/SGPT) (test code = 1742-6) 22 0-55 [facility] plasma protein measurement (mass/volume)2019-12-23 15:15:00* Test Item Value Reference Range Interpretation Comments Total Protein (test code = 2885-2) 7.8 6.5-8.1 [facility] or plasma albumin measurement (mass/volume)2019-12-23 15:15:00* Test Item Value Reference Range Interpretation Comments Albumin (test code = 1751-7) 3.9 3.5-5.0 [facility] SouthPlasma globulin measurement (mass/volume) 2019-12-23 15:15:00* Test Item Value Reference Range Interpretation Comments Globulin (test code = 28917-9) 3.9 2.3-3.5 [facility] albumin/globulin mass huxvf9728-09-13 15:15:00* Test Item Value Reference Range Interpretation Comments Albumin/Globulin Ratio (test code = 1759-0) 1.0 0.8-2.0 [facility]ere[facility] or plasma alkaline phosphatase measurement (enzymatic activity/volume)2019-12-23 15:15:00* Test Item Value Reference Range Interpretation Comments Alkaline Phosphatase (test code = 6768-6) 66 40-150 [facility] SouthCBC W/O [id number] 00:12:00* Test Item Value Reference Range Interpretation [...] MPV) 9.7 fL 6.7-11.0 N BASIC METABOLIC ZCNTB6384-01-76 00:08:00* Test Item Value Reference Range Interpretation [...] code = CA) 9.6 mg/dL 8.5-10.1 N [id number]-S7511-17-13 00:08:00* Test Item Value Reference Range Interpretation Comments TROPONIN-I (test code = TROPI) <0.015 ng/mL 0-0.045 N BASIC METABOLIC MIVFU8634-02-11 23:57:00* Test Item Value Reference Range Interpretation [...] code = CA) 9.6 mg/dL 8.5-10.1 N [id number]-X4480-78-12 23:57:00* Test Item Value Reference Range Interpretation Comments TROPONIN-I (test code = TROPI) ng/mL 0-0.045 - XR CHEST 1 [id number] 23:32:00 FAX: Chelsea José DO [place]: [address]: REG Name: SRIRAM GIMENEZ [facility] : [birth year] Age/S: 49/M [address] [facility] Unit #: [id number] Loc: [place] [address] Phys: Chelsea José DO Acct: [id number] Dis Date: Status: REG ER PHONE #: [phone] Exam Date: 07/27/20192329 FAX #: [phone] Reason: CHEST PAIN EXAMS: CPT CODE: [id number] XR CHEST 1 V 47949 LOCATION: Q15 HISTOR Y: 49-year-old male who [...] Technologist: Ana Rosa Samuels Trnscrd Date/Time/By: 07/27/2019 (5182) : By: [email or web address] Orig Print D/T: S: 07/27/2019 (1373) PAGE 1 Signed Report
[2020-03-20] MEDS ORDERED: METOPROLOL TART50 MG PO (05:36)
--- NOTE | 2020-03-20 06:08 | NUR ---
PT IS TRANSFERRED FROM ER ,PT IS AOX3 RESPIRATIONS ARE EVEN AND UNLABORED SKIN WARM AND DRY TO TOUCH DENIES CHEST PAIN .ORIENTED THE PT TO THE ROOM AND ASSESSMENT DONE ,CALL LIGHT WITH IN REACH ,TELE SHOWS SR AND LEFT AC 20 G S/L CALL LIGHT WITH IN REACH CONTINUE TO MONITOR
--- NOTE | 2020-03-20 06:37 | NUR ---
CONSULTED DR MCCLELLAND FOR DR HAND
--- NOTE | 2020-03-20 07:06 | NUR ---
BEDSIDE REPORT GIVEN TO THE ONCOMING NURSE
[2020-03-20 09:13] LABS: CREATINE KINASE MB 0.9 ng/mL (0-5.0)
--- NOTE | 2020-03-20 16:47 | NUR ---
PATIENT REQUESTING TO EAT, CALLED [facility], SPOKE TO SHIRT FINISHER, SHE STATED THAT SHE WOULD PAGE DR. GLASS FOR ORDERS TO [phone].
[2020-03-20 17:52] LABS: CREATINE KINASE MB 0.8 ng/mL (0-5.0)
--- NOTE | 2020-03-20 18:09 | History and Physical ---
PRIMARY CARE DOCTOR: Dr. Ernie White. HOSPITAL DOCTOR: Dr. Tomás Sullivan. CHIEF COMPLAINT: Chest tightness. HISTORY OF PRESENT ILLNESS: Mr. Vogt is a 49-year-old male with chest tightness. The patient was feeling tightness on his body since last , April 14. Symptoms progressed. He comes to the emergency room. At this time he is admitted given second presentation for similar feature. The patient claims he did a stress test in [place] earlier in 2019 with nonspecific finding. However, he had previous evaluation in december 2019 with senior back end java developer here in [facility] and the patient was told that heart was okay. The patient underwent medical management. On December 26, 2019, left heart catheterization done, which stood under slightly different names, but probably with no obstructive CAD. PAST MEDICAL HISTORY: Hypertension and hyperlipidemia. MEDICATIONS: Medication list reviewed per the chart record. ALLERGIES: NO KNOWN DRUG ALLERGIES. SOCIAL HISTORY: No smoking. No drinking. No drugs. FAMILY HISTORY: Noncontributory. REVIEW OF SYSTEMS: Ten-system review of systems all negative except as described above. OBJECTIVE: VITAL SIGNS: Afebrile, vital signs noted reviewed per the chart record. 152/86 blood pressure was recently noted. 100% oxygen saturation on room air FiO2. GENERAL: In no acute distress. Alert and calm. HEENT: Normocephalic atraumatic. NECK: Supple. Throat midline. LUNGS: Bilateral air entry, clear. CARDIOVASCULAR: S1, S2. No murmurs, rubs, or gallops. ABDOMEN: Soft, nontender. EXTREMITIES: No clubbing. No cyanosis. No edema. INTEGUMENT: No rash. No purpura. LABORATORY DATA: Labs reviewed per the chart record. Include 11 white count, 47 hematocrit, 267,[address] chest done unremarkable mainly. IMPRESSION AND PLAN: 1. Atypical chest pain, not otherwise specified. 2. Hypertension. 3. Hyperlipidemia. 4. Cardiology consult. Completed stress test today. Continue cardiac medications. The crawley virus test is pending. We will follow up closely. Thank you very much, Dr. Skinner for allowing me a chance to participate in care of Mr. Vogt. Please call for questions. Grant Espinoza MD GMN/RUDI /[id number]
--- NOTE | 2020-03-20 19:22 | NUR ---
Change of shift report given to Yara Key RN.
[2020-03-20] MEDS ORDERED: ATORVASTATIN 40 MG TAB PO SCH (21:00)
--- NOTE | 2020-03-20 21:55 | NUR ---
Patient d/c home. Private car. D/C information given. IV d/c ed.
--- NOTE | 2020-03-20 23:35 | Consultation ---
DATE OF CONSULTATION: 03/20/2020 Cardiology Consultation REQUESTING PHYSICIAN: Tomás Sullivan MD. REASON FOR CONSULTATION: Chest pain. HISTORY OF PRESENT ILLNESS: This is a 49-year-old male with history of hypertension, hyperlipidemia, and prediabetes mellitus, who presents with complaints of chest pain described as chest pain and pressure 6 to 7/10 in severity, lasting minutes at a time. The pain started on Wednesday, but was worse yesterday, so he presented to the ER for further evaluation. The pain was associated with shortness of breath, but he denied any aggravating or alleviating factors. No nausea or radiation. He denied any edema, orthopnea, or PND. REVIEW OF SYSTEMS: Negative except as per HPI. PAST MEDICAL HISTORY: 1. Hypertension. 2. Hyperlipidemia. 3. Prediabetes mellitus. PAST SURGICAL HISTORY: Appendectomy. ALLERGIES: PLEASE SEE EMR. MEDICATIONS: Please see medication list. SOCIAL HISTORY: No tobacco, alcohol, or illicit drugs. FAMILY HISTORY: Noncontributory to current illness. PHYSICAL EXAMINATION: VITAL SIGNS: Temperature 97.7 degrees, pulse 55, respiratory rate 18, blood pressure 125/85, and oxygen saturation 99% on room air. GENERAL: Awake, alert, well-developed, well-nourished man, in no acute distress. HEENT: Normocephalic and atraumatic. Pupils equal. No scleral icterus. NECK: Supple. No thyromegaly or cervical lymphadenopathy. No carotid bruits. LUNGS: Clear to auscultation bilaterally. No wheezes or crackles. CARDIOVASCULAR: Normal rate. Regular rhythm. No murmur. Normal S1 and S2. ABDOMEN: Soft and nontender. EXTREMITIES: No edema. NEUROLOGIC: Nonfocal exam. LABORATORY DATA: WBC 11.31, hemoglobin 15, hematocrit 46.8, and platelets 267. Sodium 138, potassium 4.3, chloride 104, CO2 28, BUN 11, and creatinine 1.03. Troponin 0.008. EKG, sinus bradycardia, possible left atrial enlargement. IMPRESSION: 1. Chest pain. 2. Hypertension. 3. Hyperlipidemia. 4. Prediabetes mellitus. RECOMMENDATIONS: The patient is ruled out for myocardial infarction with serial cardiac biomarkers. Nuclear stress test was without evidence of ischemia. The patient's blood pressure is controlled. Continue current cardiac medications. No further cardiac evaluation is indicated at this time. On review of prior records, it appears the patient actually had cardiac catheterization earlier this year as well without evidence of obstructive coronary artery disease. No further cardiac evaluation is indicated. The patient can be discharged home from a cardiac standpoint. Thank you for this consult. We will continue to follow. Marlene Mcconnell MD ABS/MODL /[id number]
[2020-03-21] MEDS ORDERED: PANTOPRAZOLE SODIUM 40 MG SUSPDR.PKT PO SCH (07:30)
[2020-03-21] MEDS ORDERED: AMLODIPINE BESYLATE 10 MG TAB PO SCH (09:00)
[2020-03-21] MEDS ORDERED: METOPROLOL TARTRATE 50 MG TAB PO SCH (09:00)
[2020-03-21] MEDS ORDERED: OMEGA 3 POLYUNSAT FATTY ACIDS 1000 MG SOFTGEL PO SCH (09:00)
[2020-03-21] MEDS ORDERED: ASPIRIN 81 MG CHEW TAB PO SCH (09:00)
--- NOTE | 2020-03-21 09:47 | Myoview Stress Test ---
DATE OF STUDY: 03/20/2020 09:17:00 Stress Test - Treadmill ONLY REPORT: Nuclear Stress. PROCEDURE TITLE: Rest/stress single isotope SPECT imaging with pharmacologic stress and gated SPECT imaging. INDICATION: Chest pain. PROCEDURE IN DETAIL: Patient performed treadmill exercise using a Deny protocol exercising for 8 minutes 40 seconds to stage III and completing estimated workload of 10.2 metabolic equivalents (METS). The heart rate was 63 beats per minute at rest and increased to 158 beats per minute at peak exercise, which was 93% of the maximum predicted heart rate. The resting blood pressure was 144/84 mmHg and increased to 161/85 mmHg, which was a normal response. The resting electrocardiogram demonstrated normal sinus rhythm. There were no ST-segment changes suggestive of myocardial ischemia. Myocardial perfusion imaging was performed at rest following the injection of 11 mCi of tetrofosmin. At peak pharmacologic effect, the patient was injected 33 mCi of tetrofosmin. Gated post-stress tomographic imaging was performed. FINDINGS: The overall quality of study was fair. Left ventricular activity was noted to be normal size on the rest and stress studies. SPECT images demonstrated homogeneous tracer distribution throughout the myocardium. Gated SPECT imaging revealed normal myocardial thickening and wall motion. The left ventricular ejection fraction was calculated to be 61%. Gated SPECT imaging revealed normal myocardial thickening and wall motion. The left ventricular ejection fraction calculated 61%. IMPRESSION: Myocardial perfusion imaging is normal. Overall left ventricular systolic function was normal without regional wall motion abnormalities. DICTATION ID: [id number]. Marlene Mcconnell MD ABS/MODL /[id number]
--- NOTE | 2020-03-21 11:55 | NUR ---
discharge summary [id number]
--- NOTE | 2020-03-21 13:48 | Discharge Summary ---
PRIMARY CARE DOCTOR: Ernie White MD. HOSPITALIST: Tomás Sullivan MD. This is coverage for Dr. Sullivan. PRIMARY DIAGNOSIS: Chest tightness, unlikely acute coronary syndrome. HOSPITAL FINDINGS: Mr. Vogt is a 49-year-old gentleman with chest tightness. The patient upon getting more information, it appears he had in December 2019, left heart catheterization with no obstructive CAD. However, he was put under observation while we were reviewing the data. The patient went for stress test and stress test was deemed no evidence of ischemia. No high risk of ACS. Therefore, after, the patient was allowed for discharge and outpatient followup. MEDICATIONS AT DISCHARGE: Per record. FOLLOWUP: Follow up with Dr. White and Dr. Mcconnell. ACTIVITY: As tolerated. DIET: Low-cholesterol cardiac diet. Greater than 30 minutes in direct care and coordination on this date. MD SAM Lang/MODL /[id number]
== END 2020-03-20 22:00 | disposition home or self-care (01) ==
LOC: ER 19:48 → ERHOLD 03-20 00:45 → MED/SURG 03-20 04:26
PROVIDERS: ADMIT Internal Medicine; ATTEND Internal Medicine
DX: R07.89 Other chest pain (principal); I10 Essential (primary) hypertension; E78.5 Hyperlipidemia, unspecified; R73.03 Prediabetes
CPT/HCPCS: 36415 ×2; 70450; 71250; 78452; 80053; 82550 ×2; 82553 ×2; 82948; 83880; 84484 ×2; 85025; 93005; 93017; 93306; 99284; A9502; G0378; U0002

== ENCOUNTER 2020-10-27 20:30 | Emergency (ER) | payer SELFPAY ==
[~2020-10-27] VITALS: Ht 167.6 cm; Wt 81.6 kg
[~2020-10-27 20:30] MED LIST changes: +METOPROLOL TART50 MG PO
[2020-10-27] MEDS ORDERED: ONDANSETRON HCL INJ 2MG/ML 2ML 2 MG/ML VIAL IV STA (20:47)
[2020-10-27] MEDS ORDERED: KETOROLAC TROMETHAMINE 30 MG/ML VIAL IV STA ×2 (20:50→20:53)
[2020-10-27] MEDS ORDERED: KETOROLAC TROMETHAMINE 30 MG/ML VIAL ONE (21:00)
[2020-10-27] MEDS ORDERED: FENTANYL CITRATE/PF 100MCG/2 ML INJ IV ONE (21:00)
[2020-10-27 21:06] LABS: BASOPHILS # (AUTO) 0.1 (0.0-0.1); BASOPHILS % 0.9 % (0.0-1.0); EOSINOPHILS # (AUTO) 0.1 (0.0-0.4); EOSINOPHILS % 1.2 % (0.0-6.0); HEMATOCRIT 44.5 % (38.2-49.6); HEMOGLOBIN 14.4 g/dL (14.0-18.0); LYMPHOCYTES # (AUTO) 2.1 (1.0-3.2); LYMPHOCYTES % 18.6 % (18.0-39.1); MEAN CORPUSCULAR HEMOGLOBIN 28.5 pg (28-32); MEAN CORPUSCULAR HGB CONC 32.4 g/dL (31-35); MEAN CORPUSCULAR VOLUME 88.1 fL (81-99); MONOCYTES % 8.5 % (4.4-11.3); NEUTROPHILS % 70.4 % (38.7-80.0); PLATELET COUNT 238 x10e3/uL (140-360); RED BLOOD COUNT 5.05 x10e6/uL (4.3-5.7); RED CELL DISTRIBUTION WIDTH 14.5 % (11.7-14.4)
[2020-10-27 21:14] LABS: CLARITY,URINE HAZY (CLEAR); COLOR,URINE YELLOW (YELLOW); KETONES,URINE TRACE (NEGATIVE); LEUKOCYTE ESTERASE ,URINE NEGATIVE (NEGATIVE); NITRITE,URINE NEGATIVE (NEGATIVE); PROTEIN,URINE DIPSTICK TRACE (NEGATIVE); URINE UROBILINOGEN 0.2 mg/dL (0.2 - 1)
[2020-10-27 21:17] LABS: BACTERIA,URINE FEW /HPF; EPITHELIAL CELLS,URINE FEW /LPF
[2020-10-27 21:19] LABS: ALBUMIN 4.3 g/dL (3.5-5.0); ALBUMIN/GLOBULIN RATIO 1.2 (0.8-2.0); ANION GAP 13.4 mmol/L (8-16); CALCIUM 9.4 mg/dL (8.4-10.2); CREATININE, SERUM 1.34 mg/dL (0.72-1.25); POTASSIUM 3.4 mmol/L (3.5-5.1)
[2020-10-27] MEDS ORDERED: ZUPLENZ4 MG PO (22:15)
[2020-10-27] MEDS ORDERED: HYDROCODON-ACE1 EA12 PO (22:15)
== END 2020-10-27 22:41 | disposition home or self-care (01) ==
LOC: ER 20:43
DX: R10.31 Right lower quadrant pain (principal); R30.0 Dysuria; N20.0 Calculus of kidney; I10 Essential (primary) hypertension; E11.9 Type 2 diabetes mellitus without complications; E78.5 Hyperlipidemia, unspecified; M10.9 Gout, unspecified
CPT/HCPCS: 36415; 74176; 80053; 81001; 85025; 99284; J1885

== ENCOUNTER 2022-09-19 00:47 | Emergency (ER) | payer OTHER ==
[~2022-09-19] VITALS: Ht 167.6 cm; Wt 81.6 kg
[~2022-09-19 00:47] MED LIST changes: +HYDROCODON-ACE1 EA12 PO; +ZUPLENZ4 MG PO
[2022-09-19] MEDS ORDERED: ACETAMINOPHEN 325 MG TAB PO ONE (01:00)
[2022-09-19] MEDS ORDERED: ACETAMINOPHEN 325 MG TAB ONE (01:12)
[2022-09-19] MEDS ORDERED: PAXLOVID 300-11 EACH PO (01:46)
[2022-09-19 02:42] VITALS: BP 162/98
== END 2022-09-19 03:16 | disposition home or self-care (01) ==
LOC: ER 00:56
DX: R50.9 Fever, unspecified (principal); U07.1 COVID-19; R05.9 Cough, unspecified; I10 Essential (primary) hypertension; E11.9 Type 2 diabetes mellitus without complications; E78.5 Hyperlipidemia, unspecified; M10.9 Gout, unspecified
CPT/HCPCS: 71046; 83518; 87070; 99283; U0002